=== PATIENT | male | born 1980 | race Caucasian/White ===

== ENCOUNTER 2021-09-17 20:01 | Inpatient (IN) | payer MEDICAID, SELFPAY ==
[2021-09-17 20:02] VITALS: BP 149/72; PULSE 97; RESP 16; TEMP 37.9; O2SAT 95; BMI 40.4
[2021-09-17 20:12] VITALS: BP 149/72; PULSE 97; RESP 16; TEMP 37.9; O2SAT 96
--- NOTE | 2021-09-17 20:18 | CT_ITS ---
We are attempting to reach an attending provider to discuss findings. An addendum with communication details will be sent when the communication is complete. STUDY: CT Abdomen And Pelvis W/O Contrast Injection 09/17/2021 8:50 PM REASON FOR EXAM: Male, 40 years old. ABDOMINAL PAIN abdominal pain TECHNIQUE: Transaxial images were obtained without oral contrast, and without intravenous contrast. Individualized dose optimization techniques were used for this CT. COMPARISON: 12.30.12. FINDINGS: The visualized lung bases are unremarkable. The visualized portions of the heart are within normal limits. There is decreased attenuation of the liver consistent with steatosis. Unremarkable gallbladder and extrahepatic biliary system. Unremarkable spleen. Unremarkable pancreas. Unremarkable bilateral adrenal glands. No acute findings of the right kidney. No acute findings of the left kidney. Unremarkable visualized stomach. Unremarkable small intestine. There is diverticulosis, with thickening of the colon wall, and pericolonic inflammation changes consistent with acute diverticulitis. Regional focal perforation with extraluminal air. There is non-visualization of the appendix. There are no acute findings of the abdominal aorta. Unremarkable inferior vena cava. Subcentimeter mesenteric lymph nodes. Unremarkable urinary bladder. There is bilateral neural foraminal stenosis at L4-5 and L5-S1. Unremarkable abdominal wall. There are diffuse degenerative changes of the visualized lumbar spine. CT/Abdomen/Pelvis without Cont IMPRESSION: (NOT LISTED IN ORDER OF SIGNIFICANCE) Fatty liver. Sigmoid acute diverticulitis. Regional focal perforation with extraluminal air Other findings as above. CF called and case discussed. Electronically Signed: Ed Schmid MD at 21:00 EDT ,
--- NOTE | 2021-09-17 20:19 | EX.ED.DYSGE1 ---
HPI History of Present Illness Chief Complaint: Abd Pain Narrative Narrative: Patient presents with left lower quadrant abdominal pain for the past 3 days. He has noticed low-grade fever at home of 100. No urinary symptoms. No flank pain. No diarrhea. He does have a history of diverticulitis. Pain is described as crampy and constant but it does wax and wane. PFSH PFSH Home Medications cyclobenzaprine 10 mg PO TID PRN #20 tablet 02/06/17 [Rx Last Taken Unknown] naproxen 500 mg PO BID PRN #20 tab 02/06/17 [Rx Last Taken Unknown] oxycodone-acetaminophen 1 - 2 tab PO Q4H PRN PRN #20 tab 02/06/17 [Rx Last Taken Unknown] Allergy/AdvReac Type Severity Reaction Status Date / Time No Known Allergies Allergy Verified 09/17/21 20:02 Social History Smoking Status: Former smoker ROS ROS ED ROS Narrative Past medical history: Reviewed Medications: Reviewed Social history: Noncontributory Review of systems: All systems negative except as indicated General: No fever Eyes: No visual changes ENT: No upper airway congestion, normal voice Neck: No neck pain Cardiovascular: No chest pain Respiratory: No shortness of breath or cough Gastrointestinal: As in HPI Genitourinary: No dysuria Musculoskeletal: Denies myalgias no difficulty with ambulation Skin: No rash Neurological: No memory loss, confusion or any focal weakness Psych: No recent behavioral changes Hematologic: No easy bleeding or easy bruising EXAM Physical Exam Narrative Exam Narrative: Physical exam General: Well nourished, Well developed, No Acute Distress Head: Normocephalic, Atraumatic Eyes: Conjunctiva not pale ENT: Moist mucous membranes Neck: Supple, Nontender, No lymphadenopathy Cardiovascular: Regular rate, Regular rhythm Respiratory: No distress, CTA bilaterally Abdomen: Soft, left lower quadrant abdominal pain without any guarding or rebound. No right-sided abdominal pain. No pain at McBurney's no epigastric pain. No right upper quadrant pain. Negative Francis's. Back: Nontender, Normal Inspection. Negative for: CVA tenderness Extremities: Nontender, No edema Skin: Normal color, No rash Neurological: Alert, Normal Strength, Normal Sensation Psychological: Normal affect Const Vital Signs: 09/17/21 20:02 09/17/21 20:12 Temperature 100.3 F H 100.3 F H Temperature Source Oral Oral Pulse Rate 97 97 Respiratory Rate 16 16 Blood Pressure 149/72 H 149/72 H Blood Pressure Mean 97 97 Pulse Ox 95 96 Oxygen Delivery Method Room Air Room Air MDM MDM MDM Narrative Medical decision making narrative: Patient is found to have diverticulitis with microperforation. Patient appears well but does have leukocytosis Zosyn was given. Analgesia will be provided as needed. I talked to surgery who will admit. Lab Data Labs: Laboratory Results - last 24 hr 09/17/21 09/17/21 20:15 20:15 WBC 22.0 H RBC 5.40 Hgb 16.7 H Hct 48.0 MCV 88.9 MCH 30.9 MCHC 34.8 RDW Std Deviation 41.6 RDW Coeff of Tu 12.8 Plt Count 256 MPV 10.8 Immature Gran % (Auto) 0.500 Neut % (Auto) 80.6 H Lymph % (Auto) 11.0 L [place] % (Auto) 7.5 Eos % (Auto) 0.1 Baso % (Auto) 0.3 Absolute Neuts (auto) 17.7 H Absolute Lymphs (auto) 2.41 Nucleated RBC % 0 Diff Path Review May foll Anisocytosis 1+ Ovalocytes 1+ Sodium 137 Potassium 3.5 Chloride 104 Carbon Dioxide 26.0 Anion Gap 7 BUN 9 Creatinine 0.78 Estim Creat Clear Calc 125.89 Est GFR (MDRD) Af Amer 141 Est GFR (MDRD) Non-Af 116 BUN/Creatinine Ratio 11.5 Glucose 164 H Calcium 9.4 Total Bilirubin 1.00 AST 19 ALT 46 Alkaline Phosphatase 59 Total Protein 7.9 Albumin 4.0 Globulin 3.9 Albumin/Globulin Ratio 1.0 Lipase 41 L Radiography Diagnostic Testing: Clinical Impression(s) from Imaging Studies Abdomen/Pelvis CT 09/17/21 20:18 IMPRESSION: (NOT LISTED IN ORDER OF SIGNIFICANCE) Fatty liver. Sigmoid acute diverticulitis. Regional focal perforation with extraluminal air Other findings as above. CF called and case discussed. Electronically Signed: Ed Schmid MD at 21:00 EDT , ADDENDUM: 09/17/212125 IMPRESSION: (NOT LISTED IN ORDER OF SIGNIFICANCE) Fatty liver. Sigmoid acute diverticulitis. Regional focal perforation with extraluminal air Other findings as above. CF called and case discussed. N.B. : The above Results were Read Back by Ed Schmid MD to MD nicolasa, and understanding confirmed on 09/17/2021 21:19:56 (ET). Electronically Signed: Ed Schmid MD at 21:00 EDT Reading Location ID and State: [facility] / [place] , Service support , Discharge Plan Triage Chief Complaint: Abd Pain ED Provider: Trino Fisher Dx/Rx/DC Orders Clinical Impression: Diverticulitis, Diverticular disease of intestine with perforation and abscess Prescriptions: No Action cyclobenzaprine 10 MG tablet 10 mg PO TID PRN (Reason: Muscle Spasm) Qty: 20 RF: 0 oxycodone-acetaminophen 1 TABLET tablet 1 - 2 tab PO Q4H PRN PRN (Reason: Pain) Qty: 20 RF: 0 naproxen 500 MG tablet 500 mg PO BID PRN Qty: 20 RF: 0 Primary Care Provider: Nik Metcalf Referrals: Nik Metcalf MD [Primary Care Provider] - Disposition Disposition: Acute Care [facility]
[2021-09-17 20:27] LABS: Absolute Lymphocyte Count 2.41 X10^3/uL (0.83-4.51); Absolute Neutrophil Count 17.7 X10^3/uL (2.0-7.7); Basophil# 0.06 X10^3/uL; Basophil% 0.3 % (0-1); Eosinophil# 0.02 X10^3/uL; Eosinophils% 0.1 % (0-5); Hemoglobin 16.7 g/dL (13.0-16.5); Lymphocyte # 2.41 X10^3/ul (0.83-4.51); Mean Corp Hgb Conc 34.8 g/dL (32-36); Mean Corpuscular Hgb 30.9 pg (27.0-32.0); Mean Corpuscular Volume 88.9 fL (80-94); Mean Platelet Vol. 10.8 fl (6.2-12.0); Monocyte# 1.64 X10^3/uL; Monocyte% 7.5 % (0-10); NRBC Flagged by Analyzer 0 % (0-5); Neutrophil # 17.71 X10^3/uL (2.7-7.7); Neutrophil % 80.6 % (47-70); POSITIVE DIFFERENTIAL YES; Platelet Count 256 K/mm3 (150-450); RBC Distribution Width CV 12.8 % (11.6-14.6); RBC Distribution Width SD 41.6 fl (35.1-43.9)
[2021-09-17 20:49] LABS: AST(SGOT) 19 U/L (15-37); Alanine Aminotransfer ALT/SGPT 46 U/L (16-61); Alkaline Phosphatase 59 U/L (45-117); Anion Gap 7 (5-15); BUN 9 mg/dL (7-18); BUN/Creat Ratio 11.5 RATIO (10-20); Calcium,Total 9.4 mg/dL (8.5-10.1); Chloride 104 mmol/L (98-107); Creatinine, Serum 0.78 mg/dL (0.70-1.30); EST Glomerular Filtration Rate 116 mL/min (>60); Est Glom Filt Rate - Afr Amer 141 mL/min (>60); Estimated Creatinine Clearance 125.89 ml/min; Globulin 3.9 g/dL (2.2-4.2); Glucose 164 mg/dL (74-106); Lipase 41 U/L (73-393); Potassium 3.5 mmol/L (3.5-5.1); Protein, Total 7.9 g/dL (6.4-8.2); Sodium Level 137 mmol/L (136-145)
[2021-09-17 20:56] LABS: Differential Indicated SCAN CRITERIA MET
[2021-09-17 21:04] VITALS: BP 176/77; PULSE 73; RESP 16; TEMP 37.2; O2SAT 96
[2021-09-17 21:16] LABS: Anisocytosis 1+; Ovalocyte 1+
[2021-09-17 21:29] LABS: Bacteria 0 SEEN /hpf (None Seen); Mucous, Urine 0 SEEN /hpf (<or=2+); Red Blood Cells-Urine 0 SEEN /hpf (0-5); Squamous Epithelial Cells - UA 0 SEEN /hpf (0-5); White Blood Cells 0 SEEN /hpf (0-5)
[2021-09-17 21:44] LABS: Color, Urine Yellow (Yellow); Glucose, Dipstick Normal (Normal); Ketone-Dipstick 5 mg/dl (Negative); Leukocyte Esterase-Dipstick Negative /ul (Negative); Nitrite-Dipstick Negative (Negative); Occult Blood-Urine Negative /ul (Negative); Protein-Dipstick Negative (Negative); Urine Bilirubin Dipstick Negative (Negative); Urine Clarity Clear (Clear); Urine Urobilinogen Normal (Normal)
[2021-09-17 21:50] VITALS: BP 176/77; PULSE 73; RESP 16; TEMP 37.2; O2SAT 96
[2021-09-17 23:03] VITALS: BMI 40.3
[2021-09-17 23:17] VITALS: BP 164/80; PULSE 78; RESP 18; TEMP 37.1; O2SAT 95
[2021-09-17] MEDS: 0.9% Normal Saline 1,000 ML 125 ML IV (23:18)
[2021-09-17] MEDS: Morphine 2 MG/ML Syringe IV (23:26)
[2021-09-18 00:55] VITALS: BP 148/75
[2021-09-18 02:29] VITALS: BP 141/87; PULSE 78; RESP 18; TEMP 36.8; O2SAT 96
[2021-09-18 05:39] LABS: Absolute Lymphocyte Count 2.77 X10^3/uL (0.83-4.51); Absolute Neutrophil Count 12.2 X10^3/uL (2.0-7.7); Basophil# 0.06 X10^3/uL; Basophil% 0.4 % (0-1); Eosinophil# 0.08 X10^3/uL; Eosinophils% 0.5 % (0-5); Hematocrit 44.6 % (40-54); Hemoglobin 15.4 g/dL (13.0-16.5); Lymphocyte # 2.77 X10^3/ul (0.83-4.51); Lymphocyte % 16.7 % (19-41); Mean Corp Hgb Conc 34.5 g/dL (32-36); Mean Corpuscular Hgb 31.1 pg (27.0-32.0); Mean Corpuscular Volume 90.1 fL (80-94); Mean Platelet Vol. 10.9 fl (6.2-12.0); Monocyte# 1.43 X10^3/uL; Monocyte% 8.6 % (0-10); NRBC Flagged by Analyzer 0 % (0-5); Neutrophil # 12.22 X10^3/uL (2.7-7.7); Neutrophil % 73.4 % (47-70); Platelet Count 217 K/mm3 (150-450); RBC Distribution Width SD 42.7 fl (35.1-43.9); Red Blood Count 4.95 M/mm3 (4.6-6.2); White Blood Count 16.6 K/mm3 (4.4-11.0)
[2021-09-18 05:59] LABS: Anion Gap 6 (5-15); BUN 9 mg/dL (7-18); BUN/Creat Ratio 13.6 RATIO (10-20); Calcium,Total 8.9 mg/dL (8.5-10.1); Chloride 106 mmol/L (98-107); Creatinine, Serum 0.66 mg/dL (0.70-1.30); EST Glomerular Filtration Rate 141 mL/min (>60); Est Glom Filt Rate - Afr Amer 170 mL/min (>60); Estimated Creatinine Clearance 148.78 ml/min; Glucose 156 mg/dL (74-106); Magnesium 1.7 mg/dL (1.6-2.6); Phosphorus 2.2 mg/dL (2.5-4.9); Potassium 3.6 mmol/L (3.5-5.1); Sodium Level 137 mmol/L (136-145)
[2021-09-18] MEDS: 0.9% Normal Saline 1,000 ML 125 ML IV ×3 (06:28→22:41)
[2021-09-18] MEDS: Morphine 2 MG/ML Syringe IV ×5 (06:28→20:30)
--- NOTE | 2021-09-18 07:23 | PCM.HP.STD ---
HPI - General General Date of Admission: 09/17/21 HPI Narrative KAYLEE OCHOA, is a 40 M who presents with abdominal pain. Patient reports the pain started yesterday. He says that the pain is in his left lower quadrant. He also reports nausea and vomiting. He did have a low-grade fever in the emergency room. He has had 1 bout of diverticulitis about 7 or 8 years ago. He has never had a colonoscopy. PFSH Medical History Former smoker Home Medications naproxen 500 mg PO BID PRN PRN 09/17/21 [History Last Taken 09/15/21] Allergy/AdvReac Type Severity Reaction Status Date / Time No Known Allergies Allergy Verified 09/17/21 20:02 Social History Smoking Status: Former smoker ROS Constitutional Constitutional: Reports anorexia and fever(s); Denies fatigue Eyes Eyes: Denies blurry vision ENT HEENT: Denies abnormal hearing Cardiovascular Cardiovascular: Denies chest pain Respiratory/Chest Respiratory/Chest: Denies cough or dyspnea Gastrointestinal Gastrointestinal: Reports abdominal pain, nausea and vomiting; Denies diarrhea or dysphagia Genitourinary Genitourinary: Denies change in urinary stream Musculoskeletal Musculoskeletal: Denies abnormal gait Integumentary Integumentary: Denies jaundice Neurologic Neurologic: Denies abnormal gait Psychiatric Psychiatric: Denies depression Endocrine Endocrinology: Denies flushing Hematologic/Lymphatic Hematologic/Lymphatic: Denies easy bleeding Vital Signs Vital Signs Vital Signs: 09/17/21 20:02 09/17/21 20:12 09/17/21 21:04 Temperature 100.3 F H 100.3 F H 99 F Temperature Source Oral Oral Oral Pulse Rate 97 97 73 Respiratory Rate 16 16 16 Blood Pressure 149/72 H 149/72 H 176/77 H Blood Pressure [BP] Blood Pressure Mean 97 97 110 Blood Pressure Mean [BP] Blood Pressure Source Blood Pressure Source [BP] Blood Pressure Position Blood Pressure Position [BP] Blood Pressure Location Blood Pressure Location [BP] Pulse Ox 95 96 96 Oxygen Delivery Method Room Air Room Air Room Air 09/17/21 21:50 09/17/21 23:17 09/18/21 00:55 Temperature 99 F 98.7 F Temperature Source Oral Oral Pulse Rate 73 78 Respiratory Rate 16 18 Blood Pressure 176/77 H 164/80 H Blood Pressure [BP] 148/75 H Blood Pressure Mean 110 108 Blood Pressure Mean [BP] 99 Blood Pressure Source Monitor Blood Pressure Source [BP] Monitor Blood Pressure Position Semi-Fowlers Blood Pressure Position [BP] Supine Blood Pressure Location Right Arm Blood Pressure Location [BP] Right Arm Pulse Ox 96 95 Oxygen Delivery Method Room Air Room Air 09/18/21 02:29 Temperature 98.3 F Temperature Source Oral Pulse Rate 78 Respiratory Rate 18 Blood Pressure 141/87 H Blood Pressure [BP] Blood Pressure Mean 105 Blood Pressure Mean [BP] Blood Pressure Source Monitor Blood Pressure Source [BP] Blood Pressure Position Semi-Fowlers Blood Pressure Position [BP] Blood Pressure Location Left Arm Blood Pressure Location [BP] Pulse Ox 96 Oxygen Delivery Method Room Air Weight Weight: 272 lb 14.916 oz Body Mass Index (BMI) 40.3 Physical Exam Const oriented x3 and no apparent distress Resp normal respiratory effort Cardio regular rate and regular rhythm GI soft to palpation Inspection: Negative for abdominal distention Palpation: tender LLQ Extremity normal to inspection Results Lab / Micro Data Result Diagrams: 09/18/21 05:15 09/18/21 05:15 Labs: Laboratory Results - last 24 hr 09/17/21 20:15: WBC 22.0 H, RBC 5.40, Hgb 16.7 H, Hct 48.0, MCV 88.9, MCH 30.9, MCHC 34.8, RDW Std Deviation 41.6, RDW Coeff of Tu 12.8, Plt Count 256, MPV 10.8, Immature Gran % (Auto) 0.500, Neut % (Auto) 80.6 H, Lymph % (Auto) 11.0 L, [place] % (Auto) 7.5, Eos % (Auto) 0.1, Baso % (Auto) 0.3, Absolute Neuts (auto) 17.7 H, Absolute Lymphs (auto) 2.41, Nucleated RBC % 0, Diff Path Review May foll, Anisocytosis 1+, Ovalocytes 1+ 09/17/21 20:15: Sodium 137, Potassium 3.5, Chloride 104, Carbon Dioxide 26.0, Anion Gap 7, BUN 9, Creatinine 0.78, Estim Creat Clear Calc 125.89, Est GFR (MDRD) Af Amer 141, Est GFR (MDRD) Non-Af 116, BUN/Creatinine Ratio 11.5, Glucose 164 H, Calcium 9.4, Total Bilirubin 1.00, AST 19, ALT 46, Alkaline Phosphatase 59, Total Protein 7.9, Albumin 4.0, Globulin 3.9, Albumin/Globulin Ratio 1.0, Lipase 41 L 09/17/21 21:25: Urine Color Yellow, Urine Clarity Clear, Urine pH 8.0, Ur Specific [place] 1.010, Urine Protein Negative, Urine Glucose (UA) Normal, Urine Ketones 5 H, Urine Occult Blood Negative, Urine Nitrite Negative, Urine Bilirubin Negative, Urine Urobilinogen Normal, Ur Leukocyte Esterase Negative, Urine RBC 0 SEEN, Urine WBC 0 SEEN, Ur Squamous Epith Cells 0 SEEN, Urine Bacteria 0 SEEN, Urine Mucus 0 SEEN 09/18/21 05:15: WBC 16.6 H, RBC 4.95, Hgb 15.4, Hct 44.6, MCV 90.1, MCH 31.1, MCHC 34.5, RDW Std Deviation 42.7, RDW Coeff of Tu 13.0, Plt Count 217, MPV 10.9, Immature Gran % (Auto) 0.400, Neut % (Auto) 73.4 H, Lymph % (Auto) 16.7 L, [place] % (Auto) 8.6, Eos % (Auto) 0.5, Baso % (Auto) 0.4, Absolute Neuts (auto) 12.2 H, Absolute Lymphs (auto) 2.77, Nucleated RBC % 0 09/18/21 05:15: Sodium 137, Potassium 3.6, Chloride 106, Carbon Dioxide 25.0, Anion Gap 6, BUN 9, Creatinine 0.66 L, Estim Creat Clear Calc 148.78, Est GFR (MDRD) Af Amer 170, Est GFR (MDRD) Non-Af 141, BUN/Creatinine Ratio 13.6, Glucose 156 H, Calcium 8.9, Phosphorus 2.2 L, Magnesium 1.7 Radiology Impression Abdomen/Pelvis CT 09/17/21 20:18 IMPRESSION: (NOT LISTED IN ORDER OF SIGNIFICANCE) Fatty liver. Sigmoid acute diverticulitis. Regional focal perforation with extraluminal air Other findings as above. CF called and case discussed. Electronically Signed: Ed Schmid MD at 21:00 EDT , ADDENDUM: 09/17/212125 IMPRESSION: (NOT LISTED IN ORDER OF SIGNIFICANCE) Fatty liver. Sigmoid acute diverticulitis. Regional focal perforation with extraluminal air Other findings as above. CF called and case discussed. N.B. : The above Results were Read Back by Ed Schmid MD to MD nicolasa, and understanding confirmed on 09/17/2021 21:19:56 (ET). Electronically Signed: Ed Schmid MD at 21:00 EDT , Assessment & Plan Assessment/Plan (1) Diverticulitis: PLAN: Patient presented with abdominal pain and increased white count. The patient has CT scan that showed diverticulitis of the sigmoid colon with microperforation. I have admitted him and started him on IV antibiotics and his white count is coming down he was afebrile for the rest of the night. He is still having tenderness but it is improved. Continue IV antibiotics and n.p.o. with sips and chips for at least another 24 hours. I did advise colonoscopy after this resolves. Edmund Gill MD Pager: [facility] [address] [place] [address], [address] [place] [address] Office:
[2021-09-18 08:55] VITALS: BP 164/79; PULSE 71; RESP 18; TEMP 36.6; O2SAT 95
[2021-09-18] MEDS: Enoxaparin 40 MG/0.4 ML Syringe SC (09:51)
--- NOTE | 2021-09-18 10:35 | CASEMGMT ---
RN CM Face to Face with patient for initial transition planning/care coordination assessment. RN CM introduced self and role at [facility]. Patient lying in bed, alert and oriented. Patient willing to participate in assessment and is able to answer all questions appropriately. Care providers, pharmacy, and demographics verified. Patient wishes to discharge home, denies need for home health at this time. Patient states he has no further needs or concerns at this time. CM to follow for discharge planning needs that may arise. PCP: [facility] Specialists: cheyanne Krishna; Paul Romo specialjay [facility] Preferred Pharmacy: [facility] Insurance: [employer] Prescription Benefit: yes Living Will/HPOA: none LNOK: [email or web address] Living Arrangements: Patient is currently staying with mother in a first floor apartment with ramp to enter. Patient states he is independent at home. Transportation: self, mother DME/HHC: Patient states he has access to cane, walker, and grab bars at home. No previous HHC or SNF. Disposition Plan: Patient to discharge home with family support and follow-up plans in place. Lolita MIRANDA, RN, CM
[2021-09-18 11:52] LABS: Pathologist Review Reviewed
[2021-09-18] MEDS: 0.9% Saline Lock 10 ML Syringe IV ×2 (14:47→20:29)
[2021-09-18 14:54] VITALS: BP 141/77; PULSE 69; RESP 18; TEMP 37.2; O2SAT 94
[2021-09-18 20:54] VITALS: BP 145/80; PULSE 71; RESP 16; TEMP 37; O2SAT 98
[2021-09-19 03:25] VITALS: BP 138/97; PULSE 81; RESP 16; TEMP 36.9; O2SAT 97
[2021-09-19 05:49] LABS: Absolute Lymphocyte Count 2.66 X10^3/uL (0.83-4.51); Absolute Neutrophil Count 9.3 X10^3/uL (2.0-7.7); Basophil# 0.06 X10^3/uL; Basophil% 0.4 % (0-1); Eosinophil# 0.17 X10^3/uL; Eosinophils% 1.3 % (0-5); Hematocrit 42.2 % (40-54); Hemoglobin 14.8 g/dL (13.0-16.5); Lymphocyte # 2.66 X10^3/ul (0.83-4.51); Lymphocyte % 19.8 % (19-41); Mean Corp Hgb Conc 35.1 g/dL (32-36); Mean Corpuscular Hgb 31.3 pg (27.0-32.0); Mean Corpuscular Volume 89.2 fL (80-94); Mean Platelet Vol. 10.7 fl (6.2-12.0); Monocyte# 1.16 X10^3/uL; Monocyte% 8.6 % (0-10); NRBC Flagged by Analyzer 0 % (0-5); Neutrophil # 9.34 X10^3/uL (2.7-7.7); Neutrophil % 69.4 % (47-70); Platelet Count 197 K/mm3 (150-450); RBC Distribution Width CV 12.7 % (11.6-14.6); RBC Distribution Width SD 41.6 fl (35.1-43.9); Red Blood Count 4.73 M/mm3 (4.6-6.2); White Blood Count 13.5 K/mm3 (4.4-11.0)
[2021-09-19 06:08] LABS: Anion Gap 7 (5-15); BUN 9 mg/dL (7-18); BUN/Creat Ratio 13.5 RATIO (10-20); Calcium,Total 8.7 mg/dL (8.5-10.1); Chloride 106 mmol/L (98-107); Creatinine, Serum 0.67 mg/dL (0.70-1.30); EST Glomerular Filtration Rate 140 mL/min (>60); Est Glom Filt Rate - Afr Amer 169 mL/min (>60); Estimated Creatinine Clearance 146.56 ml/min; Glucose 140 mg/dL (74-106); Potassium 3.7 mmol/L (3.5-5.1); Sodium Level 138 mmol/L (136-145)
[2021-09-19] MEDS: 0.9% Normal Saline 1,000 ML 125 ML IV (06:15)
--- NOTE | 2021-09-19 07:22 | PN.SURG_ITS ---
Subjective Subjective Patient reports that he is feeling well. He has been passing flatus. His abdominal pain is greatly improved and only present on deep palpation. No nausea or vomiting. Objective Data Objective Data Vital Signs: Vital Signs Temp Pulse Resp BP Pulse Ox 98.4 F 81 16 138/97 H 97 09/19/21 03:25 09/19/21 03:25 09/19/21 03:25 09/19/21 03:25 09/19/21 03:25 Oxygen Delivery Method Room Air Weight: 272 lb 14.916 oz Body Mass Index (BMI) 40.3 Intake & Output: Intake and Output for Last 24 Hours 09/17/21 09/18/21 09/19/21 23:59 23:59 23:59 Intake Total 600 / 600 3365.83 / 3365.83 995.83 / 995.83 Balance 600 / 600 3365.83 / 3365.83 995.83 / 995.83 Lab / Micro Data Result Diagrams: 09/19/21 05:25 09/19/21 05:25 Labs: Laboratory Results - last 24 hr 09/17/21 20:15: Diff Path Review Reviewed 09/19/21 05:25: WBC 13.5 H, RBC 4.73, Hgb 14.8, Hct 42.2, MCV 89.2, MCH 31.3, MCHC 35.1, RDW Std Deviation 41.6, RDW Coeff of Tu 12.7, Plt Count 197, MPV 10.7, Immature Gran % (Auto) 0.500, Neut % (Auto) 69.4, Lymph % (Auto) 19.8, [place] % (Auto) 8.6, Eos % (Auto) 1.3, Baso % (Auto) 0.4, Absolute Neuts (auto) 9.3 H, Absolute Lymphs (auto) 2.66, Nucleated RBC % 0 09/19/21 05:25: Sodium 138, Potassium 3.7, Chloride 106, Carbon Dioxide 25.0, Anion Gap 7, BUN 9, Creatinine 0.67 L, Estim Creat Clear Calc 146.56, Est GFR (MDRD) Af Amer 169, Est GFR (MDRD) Non-Af 140, BUN/Creatinine Ratio 13.5, Glucose 140 H, Calcium 8.7 Physical Exam Const oriented x3 and no apparent distress Resp normal respiratory effort GI soft to palpation Inspection: Negative for abdominal distention Palpation: tender LLQ Assessment & Plan Assessment/Plan (1) Diverticular disease of intestine with perforation and abscess: PLAN: The patient is improving and his white count is coming down. He has no abdominal pain unless deep palpation is applied. He is passing flatus. I will start him on a clear liquid diet and continue antibiotics. Edmund Gill MD Pager: [facility] [address] [place] [address], [address] [place] [address] Office:
[2021-09-19 09:25] VITALS: BP 167/84; PULSE 72; RESP 18; TEMP 37.1; O2SAT 96
[2021-09-19] MEDS: Enoxaparin 40 MG/0.4 ML Syringe SC (10:16)
[2021-09-19] MEDS: 0.9% Saline Lock 10 ML Syringe IV ×4 (11:33→22:08)
[2021-09-19 14:40] VITALS: BP 150/88; PULSE 67; RESP 18; TEMP 37.3; O2SAT 96
[2021-09-19 20:40] VITALS: BP 147/71; PULSE 65; RESP 16; TEMP 37.1; O2SAT 97
[2021-09-20 03:00] VITALS: BP 147/79; PULSE 56; RESP 16; TEMP 36.8; O2SAT 96
--- NOTE | 2021-09-20 06:42 | PN.SURG_ITS ---
Subjective Subjective Patient is doing well. Patient tolerated clear liquids with no nausea or vomiting. No increased abdominal pain. Patient reports positive flatus with no pain. Patient's abdominal pain is minimal if any. Objective Data Objective Data Vital Signs: Vital Signs Temp Pulse Resp BP Pulse Ox 98.2 F 56 L 16 147/79 H 96 09/20/21 03:00 09/20/21 03:00 09/20/21 03:00 09/20/21 03:00 09/20/21 03:00 Oxygen Delivery Method Room Air Weight: 272 lb 14.916 oz Body Mass Index (BMI) 40.3 Intake & Output: Intake and Output for Last 24 Hours 09/18/21 09/19/21 09/20/21 23:59 23:59 23:59 Intake Total 3365.83 / 3365.83 2324.58 / 3124.58 850 / 850 Balance 3365.83 / 3365.83 2324.58 / 3124.58 850 / 850 Lab / Micro Data Result Diagrams: 09/19/21 05:25 09/19/21 05:25 Physical Exam Const oriented x3 and no apparent distress Resp normal respiratory effort Cardio regular rate and regular rhythm GI soft to palpation and non-tender Inspection: Negative for abdominal distention Assessment & Plan Assessment/Plan (1) Diverticulitis: PLAN: Patient is doing well. His abdominal pain is resolved and he tolerated clears yesterday. I will advance him to a transitional diet and if he tolerates this I will discharge him home on oral antibiotics for 2 weeks. Patient will follow-up with me for colonoscopy. Edmund Gill MD Pager: [facility] [address] [place] [address], [address] [place] [address] Office:
[2021-09-20 09:00] VITALS: BP 157/66; PULSE 68; RESP 18; TEMP 36.6; O2SAT 98
[2021-09-20] MEDS: Enoxaparin 40 MG/0.4 ML Syringe SC (09:58)
[2021-09-20] MEDS: 0.9% Saline Lock 10 ML Syringe IV ×2 (10:07→10:49)
--- NOTE | 2021-09-20 12:28 | PCM.DC ---
Discharge Instructions Diet Discharge Diet: - (Low residue; low fiber diet) Activity Discharge Activity: Return to Normal Activity Follow Up Care Please Follow Up With: Edmund Gill MD When: 2 weeks. Please call [phone] to schedule appointment Test Results: Test results from this visit will be discussed in further detail at your follow-up appointment, if applicable. Discharge Plan Admission Admit Date/Time: 09/17/21 21:29 Primary Reason for Your Visit: Acute diverticulitis with hperforation Attending Provider: Edmund Gill Primary Care Provider: Nik Metcalf Instructions Patient Instructions: Low-Fiber Diet Additional Instructions / Restrictions: Recommend low residue/low fiber diet Discharge Orders/Prescriptions Prescriptions: New ciprofloxacin HCl [Cipro] 500 mg tablet 500 mg PO BID 11 Days Qty: 22 RF: 0 metronidazole 500 mg tablet 500 mg PO TID 11 Days Qty: 33 RF: 0 Continued naproxen 500 MG tablet 500 mg PO BID PRN PRN (Reason: Pain) RF: 0 Referrals / Follow Up: Nik Metcalf MD [Primary Care Provider] - Edmund Gill MD [STAFF PHYSICIAN] - (Please call our office for a 2 week follow-up appointment) Disposition Disposition (needs filled in before D/C Order can be placed): Home, Self Care
--- NOTE | 2021-09-20 12:33 | DS.PCM_ITS ---
Providers Date of Admission: 09/17/21 Primary Care Physician: Dr. Nik Metcalf MD Reason For Visit: perforated diverticulitis Diagnosis Discharge Diagnosis (1) Diverticulitis: Status: Acute Code(s): K57.92 - Diverticulitis of intestine, part unspecified, without perforation or abscess without bleeding Medications at Discharge Home Medications naproxen 500 mg PO BID PRN PRN 09/17/21 ciprofloxacin HCl [Cipro] 500 mg PO BID 11 Days #22 tab 09/20/21 metronidazole 500 mg PO TID 11 Days #33 tab 09/20/21 Hospital Course Operations None Procedures None Summary of Care Provided Minutes Spent on Discharge: 25 Hospital Course: Patient is a 40 y/o M who presented to the ED with left lower quadrant pain for 3 days prior to presentation. CT scan of the abdomen/pelvis demonstrated acute sigmoid diverticulitis with focal perforation. Patient's symp toms were managed with conservative measures i.e. IV antibiotics, IV fluids and bowel rest. Patient's symptoms resolved on hospital stay day #2. He was advanced to clear liquids which he tolerated. Upon discharge, patient tolerated a transitional diet. He has been passing flatus and had a bowel movement. He denies any abdominal pain. He denies fever, chills. He will be discharged to home on 11 more days of oral antibiotics. He will follow-up with Dr. Gill in 2 weeks for re-evaluation and potentially schedule a colonoscopy. Weight / BMI Weight Weight: 272 lb 14.916 oz Body Mass Index (BMI) 40.3 ABG / Lab / Microbiology Data Result Diagrams: 09/19/21 05:25 09/19/21 05:25 D/C Instructions Discharge Diet: - (Low residue; low fiber diet) Please Follow Up With: Edmund Gill MD When: 2 weeks. Please call [phone] to schedule appointment Meaningful Use Info Meaningful Use Diagnoses (Choose all that apply): None applicable Discharge Plan Admission Admit Date/Time: 09/17/21 21:29 Primary Reason for Your Visit: Acute diverticulitis with hperforation Attending Provider: Edmund Gill Primary Care Provider: Nik Metcalf Instructions Patient Instructions: Low-Fiber Diet Additional Instructions / Restrictions: Recommend low residue/low fiber diet Discharge Orders/Prescriptions Prescriptions: New ciprofloxacin HCl [Cipro] 500 mg tablet 500 mg PO BID 11 Days Qty: 22 RF: 0 metronidazole 500 mg tablet 500 mg PO TID 11 Days Qty: 33 RF: 0 Continued naproxen 500 MG tablet 500 mg PO BID PRN PRN (Reason: Pain) RF: 0 Referrals / Follow Up: Edmund Gill MD [STAFF PHYSICIAN] - (Please call our office for a 2 week follow-up appointment) Nik Metcalf MD [Primary Care Provider] - Disposition Disposition (needs filled in before D/C Order can be placed): Home, Self Care Charges/Coding Visit Charges Inpatient E&M: 79136 Disch Hosp
[2021-09-20 13:55] VITALS: BP 157/80; PULSE 64; RESP 18; TEMP 36.6; O2SAT 98
--- NOTE | 2021-09-20 14:00 | CASEMGMT ---
RN CM in to pt room, pt nurse dc'ing IV. Pt denies any homegoing needs.
== END 2021-09-20 14:38 | disposition home or self-care (01) | DRG 244 ==
LOC: ED 21:41 → MS3 22:00
PROVIDERS: Admitting Provider Surgery; Emergency Provider Emergency Medicine; PCP Family Medicine; Visit Provider Surgery
DX: K57.20 Diverticulitis of large intestine with perforation and abscess without bleeding (principal); Z87.891 Personal history of nicotine dependence
CPT/HCPCS: 36415; 74176; 80048; 80053; 81001; 83690; 83735; 84100; 85025; 99251; 99284; 99406; J7030; J7040; J7050; A4216; G0463

== ENCOUNTER 2021-11-06 06:50 | Day surgery (SDC) | payer MEDICAID, SELFPAY ==
[2021-11-06] MEDS: Lactated Ringers 1,000 ML 15 ML IV (07:00)
[2021-11-06 07:17] VITALS: BP 148/98; PULSE 61; RESP 17; TEMP 36.3; O2SAT 99; BMI 40.4
--- NOTE | 2021-11-06 07:50 | HP.PCM_ITS ---
History and Physical Date of Admission: 11/06/21 Intake Vital Signs ? 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 Smoking Status:? Former smoker HPI HPI HPI: KAYLEE OCHOA, is a 40 M who presents to the office today for follow-up after being admitted for diverticulitis with microperforation.? Patient reports he is doing well with no abdominal pain.? He is tolerating a diet with normal bowel movements. ROS General General: No weight change, appetite, fatigue, colon cancer, breast cancer or weakness HEENT HEENT: No difficulty swallowing, eye injury, eye surgery, swollen glands or hoarseness Endo Endocrine: No thyroid disease, diabetes mellitus, thyroid cancer, Hair loss, heat intolerance or cold intolerance Skin Skin: No rash or changing moles Breast Breast: No left breast lump, right breast lump, nipple discharge, breast pain, abnormal mammogram, abnormal US or breast enlargement Musc Musculoskeletal: Yes back problems and arthritis; No rheumatoid arthritis, gout or joint pain Cardio Cardiovascular: No murmur, pacemaker, heart disease, atrial fibrillation, high blood pressure, heart attack, heart stent, palpitations, shortness of breat with exertion or chest pain Psych Psychiatric: No depression, anxiety or hearing voices Resp Respiratory: No shortness of breath, No sleep apnea, No cough, No COPD, No asthma, No emphysema and No wheezing Gastro Gastrointestinal: No abdominal pain, No nausea or vomiting, No diarrhea, No constipation, No blood in stool, No acid reflux, No hemorrhoids, No ulcers, No gallbladder problem and No black,tarry stools Sagar Hematologic: No blood thinners, No blood disorders, No bleeding, No anemia and No blood clots Neuro Neurologic: No system reviewed and no additional complaints, except as documented, No as per HPI, No abnormal gait, No abnormal hearing, No abnormal movements, No abnormal speech, No behavioral changes, No burning sensations, No confusion, No convulsions, No disequilibrium, No dizziness, No localized weakness, No frequent falls, No headache(s), No lack of coordination, No loss of vision, No memory loss, No numbness, No other visual disturbances, No radicular pain, No restless legs, No sensory deficit, No syncope, No tingling, No tremor(s), No weakness and No other Exam Const General: cooperative Orientation: alert and oriented x3 HENMT Head: normal to inspection Neck Neck: normal visual inspection and full ROM Chest Chest palpation & inspection: normal inspection of the chest Resp Effort & Inspection: normal respiratory effort Auscultation: clear to auscultation bilaterally Cardio Rate: regular rate Rhythm: regular rhythm GI Inspection: non-distended Palpation: soft and nontender Skin General: no rashes or lesions noted Neuro General: patient alert and patient oriented x3 Extrem General: full ROM Psych Appearance: grossly normal Mental Status: mental status grossly normal Assessment and Plan Assessment and Plan (1) Diverticular disease of intestine with perforation and abscess: ?Status:?Inactive ?Plan - Dr. Edmund Gill MD: Patient is doing well after being discharged on antibiotics.? The patient should have colonoscopy for evaluation of the sigmoid colon. I explained endoscopy in detail to the patient.? I explained the risks including but not limited to stroke or heart attack with anesthesia, perforation of the GI tract, bleeding, infection.? I explained that any of these could necessitate further emergency surgery.? The patient understands and all questions were answered sufficiently.? The patient wishes to proceed with procedure. Edmund Gill MD Pager: [facility] [address] [place] [address], [address] [place] [address] Office: I have re-examined the patient. There are no clinical changes since date of exam.
--- NOTE | 2021-11-06 08:14 | OP.COLON_ITS ---
Patient Name: Constantino Mitchell Procedure Date: 11/06/2021 7:55 AM Date of : 1980 Age: 41 Procedure: Colonoscopy Indications: Follow-up of diverticulitis Providers: Edmund Gill MD Referring MD: Nik Metcalf Medicines: Monitored Anesthesia Care Patient Profile: This is a 41 year old male. Refer to note in patient chart for documentation of history and physical. Last Colonoscopy: none. The patient's first colonoscopy is today. Complications: No immediate complications. Procedure: Pre-Anesthesia Assessment: - Prior to the procedure, a History and Physical was performed, and patient medications and allergies were reviewed. The patient's tolerance of previous anesthesia was also reviewed. The risks and benefits of the procedure and the sedation options and risks were discussed with the patient. All questions were answered, and informed consent was obtained. Prior Anticoagulants: The patient has taken no previous anticoagulant or antiplatelet agents. After reviewing the risks and benefits, the patient was deemed in satisfactory condition to undergo the procedure. After I obtained informed consent, the scope was passed under direct vision. Throughout the procedure, the patient's blood pressure, pulse, and oxygen saturations were monitored continuously. The pediatric colonoscope was introduced through the anus and advanced to the cecum, identified by appendiceal orifice and ileocecal valve. The colonoscopy was performed without difficulty. The patient tolerated the procedure well. The quality of the bowel preparation was good. Scope In: 8:02:59 AM Scope Withdrawal Time 0 hours 5 minutes 17 seconds Scope Out: 8:11:58 AM Total Procedure Duration Time 0 hours 8 minutes 59 seconds Findings: The entire examined colon appeared normal on direct and retroflexion views. A few small-mouthed diverticula were found in the sigmoid colon. Impression: - The entire examined colon is normal on direct and retroflexion views. - No specimens collected. Recommendation: - Discharge patient to home. - Resume previous diet. - Continue present medications. - Await pathology results. - Repeat colonoscopy in 10 years for screening purposes. Procedure Code(s): --- Professional --- 41445, Colonoscopy, flexible; diagnostic, including collection of specimen(s) by brushing or washing, when performed (separate procedure) Diagnosis Code(s): --- Professional --- K57.32, Diverticulitis of large intestine without perforation or abscess without bleeding CPT copyright 2017 [employer]. All rights reserved. The codes documented in this report are preliminary and upon outpatient coder review may be revised to meet current compliance requirements. Edmund Gill MD 11/06/2021 8:14:11 AM This report has been signed electronically. Number of Addenda: 0 Note Initiated On: 11/06/2021 7:55 AM
[2021-11-06 08:15] VITALS: BP 107/54; BP 148/98; PULSE 61; RESP 16; TEMP 36.4; O2SAT 94
--- NOTE | 2021-11-06 08:15 | OP.CCLET_ITS ---
11/06/2021 Nik Metcalf [address] [place] [address] Re : Colonoscopy procedure for Constantino Mitchell Dear Dr. Metcalf This procedure was performed on Saturday, November 06, 2021. My impressions and recommendations are as follows: Impressions : - The entire examined colon is normal on direct and retroflexion views. - No specimens collected. Recommendations : - Discharge patient to home. - Resume previous diet. - Continue present medications. - Await pathology results. - Repeat colonoscopy in 10 years for screening purposes. My findings are described in the full procedure note, which is enclosed. If I can be of further assistance, please feel free to contact me at Doctor phone number(s): , Work: . Sincerely, Edmund Gill MD 11/06/2021 8:14:11 AM This report has been signed electronically.
[2021-11-06 08:20] VITALS: BP 112/65; BP 148/98; PULSE 62; RESP 16; O2SAT 97
[2021-11-06 08:25] VITALS: BP 118/73; BP 148/98; PULSE 52; RESP 16; O2SAT 97
[2021-11-06 08:30] VITALS: BP 116/79; BP 148/98; PULSE 54; RESP 16; TEMP 36.1; O2SAT 99
[2021-11-06 08:45] VITALS: BP 148/98
== END 2021-11-06 08:50 | disposition home or self-care (01) ==
LOC: EN 06:50 → AC 06:51
PROVIDERS: PCP Family Medicine; Referring Provider Family Medicine; Visit Provider Surgery
PROC: 0DJD8ZZ Inspection of Lower Intestinal Tract, Via Natural or Artificial Opening Endoscopic (ICD-10-PCS; CPT 45378; principal; 2021-11-06 07:55)
DX: K57.32 Diverticulitis of large intestine without perforation or abscess without bleeding (principal); M19.90 Unspecified osteoarthritis, unspecified site; F12.90 Cannabis use, unspecified, uncomplicated; Z87.891 Personal history of nicotine dependence
CPT/HCPCS: 45378; J7120; J2405

== ENCOUNTER 2021-12-31 16:55 | Emergency (ER) | payer MEDICAID, SELFPAY ==
[2021-12-31 16:56] VITALS: BP 132/73; PULSE 69; RESP 15; TEMP 36.9; O2SAT 97; BMI 39.6
[2021-12-31] MEDS: Amox/Clavulanate 875 MG Tablet PO (18:27)
[2021-12-31] MEDS: oxyCODONE 5 MG Tablet PO (18:27)
--- NOTE | 2021-12-31 23:18 | EDS_ITS ---
HPI History of Present Illness Chief Complaint: Dental Narrative Narrative: Patient presenting with right-sided facial swelling. He has had this for couple of days. He has had 3 doses of penicillin VK. He states he tried to make an appointment with his dentist although he was unable to get in today. Patient states that the pain seems to emanate from my right upper canine. Patient has been using ice which does help with the swelling. Denies any systemic signs or symptoms. He states that anti-inflammatories are not helping him with the pain. No difficulty swallowing or breathing. [facility] Medical History Anxiety Arthritis Back pain Blackout Depression Dietary restriction Diverticular disease of intestine with perforation and abscess Former smoker History of pain when walking Loss of hearing Marijuana use PTSD (post-traumatic stress disorder) Wears glasses Home Medications naproxen 500 mg tablet 500 mg PO BID PRN PRN Pain 09/17/21 [History Last Taken 09/15/21] multivitamin-ferrous fumarate-folic acid 18 mg-400 mcg tablet (Centrum Complete) 1 tab PO DAILY 11/02/21 [History Last Taken Unknown] amoxicillin 875 mg-potassium clavulanate 125 mg tablet 1 tab PO BID #20 tabs 12/31/21 [Rx Last Taken Unknown] metformin 500 mg tablet,extended release 24 hr 1 mg PO DAILY 12/31/21 [History Last Taken Unknown] oxycodone-acetaminophen 5 mg-325 mg tablet (Percocet) 1 tab PO Q6H PRN pain 3 days #12 tabs 12/31/21 [Rx Last Taken Unknown] penicillin V potassium 500 mg tablet 500 mg PO 4X/DAY 12/31/21 [History Last Taken Unknown] Allergy/AdvReac Type Severity Reaction Status Date / Time No Known Allergies Allergy Verified 11/02/21 10:41 Surgical History History of tonsillectomy and adenoidectomy Hx of arthroscopic knee surgery Social History Smoking Status: Former smoker ROS ROS ED Constitutional Constitutional ED: Denies chills or fever(s) Eyes Eyes: Denies change in vision ENT ENT ED: Reports other Details: Dental pain ; Denies rhinorrhea or sore throat Cardiovascular Cardiovascular: Denies chest pain or palpitations Respiratory/Chest Respiratory/Chest: Denies cough or dyspnea Gastrointestinal Gastrointestinal: Denies abdominal pain or constipation Musculoskeletal Musculoskeletal: Denies arthralgias or back pain Integumentary Denies rash Neurologic Neurologic: Denies headache(s) Psychiatric Psychiatric: Denies anxiety or depression Endocrine Endocrinology: Denies cold intolerance or heat intolerance EXAM Physical Exam Const Vital Signs: 12/31/21 16:56 Temperature 98.4 F Temperature Source Temporal Pulse Rate 69 Respiratory Rate 15 Blood Pressure 132/73 H Blood Pressure Mean 92 Pulse Ox 97 Oxygen Delivery Method Room Air Positive well nourished General Appearance ED: NAD HEENT Reports TM's clear HEENT Narrative: Percussion tenderness of tooth #4. No obvious gingival lesions. Tongue is not swollen. No sublingual edema. Mild right cheek swelling. Tympanic Membrane ED: Yes TM's clear Mouth ED: Yes oral and palatal mucosa abnormal Mouth: oral and palatal mucosa abnormal Neck no lymphadenopathy Cardio regular rate and regular rhythm Extremity normal to inspection Neuro oriented x3 and CN's II-XII intact bilaterally Sensorium / Orientation: alert Psych mental status grossly normal Skin no rashes or lesions noted and no wounds MDM MDM MDM Narrative Medical decision making narrative: Patient with dental pain and right facial swelling. He has been on penicillin VK but states is not helping. He also states that he needs something more for pain. Patient switched to Augmentin. He is given oxycodone for pain. He is counseled to follow-up with his dental professional. Return precautions were discussed. Impression: 1. Dental abscess 2. Facial swelling Lab Data Attestation: I reviewed the patient's lab results. Discharge Plan Triage Chief Complaint: Dental ED Provider: Emil Velazco Dx/Rx/DC Orders Instructions: ED Dental Abscess Facial Cellulitis Prescriptions: New amoxicillin-pot clavulanate 875-125 mg tablet 1 tab PO BID Qty: 20 0RF oxycodone-acetaminophen [Percocet] 5-325 mg tablet 1 tab PO Q6H PRN (Reason: pain) 3 Days Qty: 12 0RF No Action naproxen 500 MG tablet 500 mg PO BID PRN PRN (Reason: Pain) Centrum Complete 18-400 mg-mcg Tablet 1 tab PO DAILY penicillin V potassium 500 mg tablet 500 mg PO 4X/DAY Label Comments: TAKE 1 TABLET BY MOUTH FOUR TIMES DAILY FOR 5 DAYS metformin 500 mg tablet extended release 24 hr 1 mg PO DAILY Label Comments: Take 1 tablet by mouth daily with breakfast. Primary Care Provider: Nik Metcalf Referrals: Nik Metcalf MD [Primary Care Provider] - Disposition Disposition: Home, Self Care Discharge Date/Time: 12/31/21 18:43
== END 2021-12-31 18:43 | disposition home or self-care (01) ==
PROVIDERS: Emergency Provider Student in an Organized Health Care Education/Training Program; PCP Family Medicine; Visit Provider Student in an Organized Health Care Education/Training Program
DX: K04.7 Periapical abscess without sinus (principal); R22.0 Localized swelling, mass and lump, head; Z87.891 Personal history of nicotine dependence; Z79.84 Long term (current) use of oral hypoglycemic drugs
CPT/HCPCS: 99283

== ENCOUNTER 2022-06-12 10:18 | Outpatient (RCR) | payer MEDICAID, SELFPAY ==
--- NOTE | 2022-06-12 11:20 | HP.PTEVAL ---
Patient's Visit Information KAYLEE OCHOA is a 41 year old M referred to Physical Therapy by BUNNY Pichardo with a diagnosis of CHRONIC MIDLINE LOW BACK PAIN WITH SCIATICA. Date of Evaluation: 06/12/22 Physical Therapist: Que Trivedi, PT, Cert MDT, OCS - Visit Plan Frequency: 2x /Week Duration: 4 Weeks Plan: PT INTERVTIONS AQUATIC THERAPY DLS ,POSTURAL EX'S ,LE FLEXABLITY AND STRENGTHENING - Subjective This 41 y/o male presents to physical therapy with back pain. Patient pain located lumbar symmetrical. Patient has h/o lumbar pain with fracture 2017 injury developed weakness and nerve damage. Patient seen DR recommended Aquatic therapy. Patient seen [facility] and [facility] then had 2nd opinion in [facility] both agree surgery may pain worse. Patient also wants to learn ex's for weight management and knee pain left from injury thus had arthroscopic surgery . MEDS : flexural ,naproxyn . Aggravating factors lifting bending ,sitting ,standing walking. Also right knee pain interferes with these activities. Alleviating factors rest and and medication. Coughing/sneezing + . C/O left leg paresthesia. Patient pain affects sleeping . Bowel/bladder -. Patient has prior diagnostics in past MRI and x-ray-.Patient has left foot drop left. Patient condition affects QOL and disability. - Objective POSTURE: WFL. NEURO: c/o paresthesia/tingling left leg ,reflexes L3-4,L4-5 ,L5-S1 1/3. SYMTRIES: align. PALPTION: tender paraspinals. FLEXABLITY: hamstrings min tight ,piriformis min tight. MMT: quads/hams 4/5 ,hip flexion 4-5 ,ankle 5/5. LUMBAR ROM flexion mod loss ,min loss extension , side glides WL - Special Tests L/S Slump test left side: Negative L/S Slump test right side: Negative L/S Left Straight Leg Raise: Negative L/S Right Straight Leg Raise: Negative Lumbar Standing: Flexion - Mechanical Response: No effect Lumbar Standing: Flexion - Symptoms During Testing: Increases Lumbar Standing: Flexion - Symptoms After Testing: Worse Lumbar Standing: Extension - Mechanical Response: No effect Lumbar Standing: Extension - Symptoms During Testing: Increases Lumbar Standing: Extension - Symptoms After Testing: Worse Lumbar Standing: Right Side Glides - Mechanical Response: No effect Lumbar Standing: Right Side [place] - Symptoms During Testing: No effect Lumbar Standing: Right Side [place] - Symptoms After Testing: No effect Lumbar Standing: Left Side [place] - Mechanical Response: No effect Lumbar Standing: Left Side [place] - Symptoms During Testing: No effect Lumbar Standing: Left Side [place] - Symptoms After Testing: No effect - Balance/Special Test Scores Oswestry Low Back Score: 22 - Goals Goal 1:: Patient to be I with Aquatic therapy program Goal Time Frame: 4-6 Weeks Goal 2:: Patient improve posture/body mechanics for ADLS Goal Time Frame: 4-6 Weeks Goal 3:: Patient to demonstrate 40% improvement with decrease pain and improved functionb Goal Time Frame: 4-6 Weeks Goal 4:: Patient improve lumbar ROM for function of recovery to tie shoes Goal Time Frame: 4-6 Weeks Goal 5:: Patient to improve back oswestry score by 5 points to improve QOL Goal Time Frame: 4-6 Weeks - Rehabilitation Potential Physical Therapy Diagnosis: This patient has lumbar pain with radicular symptoms with pain worse with positioning and motion testing with weakness thus benefit from skilled PT Rehabilitation Potential: Good - Anticipated Interventions Patient/Client Instruction: Educate patient on: Condition, Plan of Care For the Purpose of:: To decrease pain, To increase ROM, To improve muscle performance and motor function, To improve ability to perform ADL's, To increase tolerance to activity/condition/position, To improve ability of physical actions for home/community/work/leisure, To improve health of tissue, To decrease soft tissue restriction, To increase flexibility/ROM, To prevent re-injury Therapeutic Exercise to Include: Strength training, Body mechanics, Postural training, Flexibilty training, In an aquatic setting, Dynamic Lumbar Stabilization For the Purpose of:: To decrease pain, To increase ROM, To improve muscle performance and motor function, To improve ability to perform ADL's, To increase tolerance to activity/condition/position, To improve ability of physical actions for home/community/work/leisure, To improve health of tissue, To decrease soft tissue restriction, To increase flexibility/ROM, To prevent re-injury Thank you for the opportunity to evaluate your patient. For Medicare and Medicare HMO plans, please review the plan of care and approve it. It will need to be FAXED BACK to us at [phone] for Medicare purposes. For Medicare only, by signing this I certify the plan of care. Please let me know if there are questions or concerns regarding this plan of care. Physician Signature: Date:
--- NOTE | 2022-11-17 17:30 | HP.PT.NRP ---
Patient Information Patient Information: KAYLEE OCHOA was seen in my office for initial evaluation on 06/12/22. The following Plan of Care was established for this patient: POC Established Initial Frequency: 2x /Week Initial Duration: 4 Weeks Anticipated Interventions Patient/Client Instruction: Educate patient on: Condition and Plan of Care For the Purpose of:: To decrease pain, To increase ROM, To improve muscle performance and motor function, To improve ability to perform ADL's, To increase tolerance to activity/condition/position, To improve ability of physical actions for home/community/work/leisure, To improve health of tissue, To decrease soft tissue restriction, To increase flexibility/ROM and To prevent re-injury Therapeutic Exercise to Include: Strength training, Body mechanics, Postural training, Flexibilty training, In an aquatic setting and Dynamic Lumbar Stabilization For the Purpose of:: To decrease pain, To increase ROM, To improve muscle performance and motor function, To improve ability to perform ADL's, To increase tolerance to activity/condition/position, To improve ability of physical actions for home/community/work/leisure, To improve health of tissue, To decrease soft tissue restriction, To increase flexibility/ROM and To prevent re-injury Last Seen Last Seen: This patient was last seen in our office . Pertinent comments regarding their Physical therapy will appear below: Patient was seen for PT for intial evaluation thus d/c At this point I will be discontinuing this patient from physical therapy. I would be happy to see this patient again in the future if found appropriate by the physician. Thank you! Que Trivedi, PT, Cert MDT, OCS Balance/Gait/Functional tests Balance/Special Test Scores Oswestry Low Back Score: 22
== END 2022-06-12 19:00 | disposition home or self-care (01) ==
LOC: PT 10:18
PROVIDERS: PCP Family Medicine; Referring Provider Nurse Practitioner Family; Visit Provider Nurse Practitioner Family
DX: M54.50 Low back pain, unspecified (principal); G89.29 Other chronic pain
CPT/HCPCS: 97162

== ENCOUNTER 2023-09-18 17:42 | Emergency (ER) | payer MEDICARE, MEDICAID, SELFPAY ==
[2023-09-18 17:44] VITALS: BP 146/89; PULSE 81; RESP 16; TEMP 36.7; O2SAT 95; BMI 41.6
[2023-09-18 17:46] VITALS: BP 146/80; PULSE 80; RESP 16; TEMP 36.7; O2SAT 95
--- NOTE | 2023-09-18 18:03 | CT_ITS ---
EXAM: CT ABDOMEN AND PELVIS WITH INTRAVENOUS CONTRAST CLINICAL INDICATION: LLQ pain, H/O diverticulitis -- IV PO Contrast TECHNIQUE: Helically acquired images were obtained of the abdomen and pelvis with intravenous contrast. This CT exam was performed using one or more of the following dose reduction techniques: automated exposure control, adjustment of the mA and/or kV according to patient size, and/or use of iterative reconstruction technique. CONTRAST: Oral and amp; IV Gastrografin and amp; 100mL Isovue-300 COMPARISON: CT abdomen and pelvis without contrast earlier on the same date. FINDINGS: LOWER THORAX: No significant abnormality. Lung bases are clear. No cardiomegaly. No significant pericardial effusion. ABDOMEN: LIVER: Low-attenuation within the liver without focal hepatic abnormality likely secondary to fatty infiltration. GALLBLADDER AND BILE DUCTS: No significant abnormality. No calcified gallstones. No gallbladder distention or wall edema. No intra- or extrahepatic biliary ductal dilation. PANCREAS: No significant abnormality. No focal cystic or solid mass. SPLEEN: No significant abnormality. Normal size without focal cystic or solid mass. ADRENALS: No significant abnormality. No nodules. KIDNEYS AND URETERS: No significant abnormality. Normal renal size and position. No hydronephrosis. STOMACH AND BOWEL: There is acute diverticulitis of the sigmoid colon with slight increased degree of pericolonic inflammation compared to the prior examination. Punctate foci of air adjacent to the colon appear to be contained within multiple diverticula in this location. No definitive evidence of microperforation although this cannot be entirely excluded such as that suspected as seen on sagittal series image 106. The oral contrast administered extends to the area of bowel wall thickening associated with the inflammatory process. No stomach or bowel distention. PELVIS: APPENDIX: A normal appendix is identified in the right lower quadrant. BLADDER: No significant abnormality. REPRODUCTIVE: Normal as visualized. No mass. ABDOMEN and PELVIS: INTRAPERITONEAL SPACE: Foci of air adjacent to the sigmoid colon are likely contained within diverticula. No definite free air is identified and no evidence of free fluid. BONES/JOINTS: Degenerative changes in the spine. No suspicious lytic or blastic abnormality. SOFT TISSUES: No significant abnormality. No discrete abdominal or pelvic wall hernia. VASCULATURE: No significant abnormality. Abdominal aorta is non-dilated. LYMPH NODES: No significant abnormality. No enlarged lymph nodes. CT/Abdomen/Pelvis WITH Contrast IMPRESSION: 1. There is acute diverticulitis of the sigmoid colon with slight increased degree of pericolonic inflammation compared to the prior examination. Punctate foci of air adjacent to the colon appear to be contained within multiple diverticula in this location. No definitive evidence of microperforation although this cannot be entirely excluded (such as that suspected as seen on sagittal series image 106). 2. Likely fatty liver. Electronically Signed: Hossein Schrader DO at 20:16 EDT ,
--- NOTE | 2023-09-18 18:03 | EX.ED.DYSGE1 ---
HPI History of Present Illness Chief Complaint: Abd Pain Informant: patient Narrative Narrative: Patient presents with mild left lower quadrant abdominal pain for the past couple of days. He has a history of diverticulitis and required hospitalization in the past. He went to present early with this illness in case he does have diverticulitis again. He states he has had some chills today but has been checking his temperature. His Tmax has been 99.1. No pain with bowel movement and no blood in his stool. PFSH PFSH Medical History Loss of hearing Wears glasses PTSD (post-traumatic stress disorder) Depression Anxiety Marijuana use Arthritis Back pain Blackout Dietary restriction History of pain when walking Former smoker Diverticular disease of intestine with perforation and abscess Home Medications ?Medication ?Instructions ?Recorded ?Last Taken ?Type multivitamin-ferrous 1 tab PO DAILY 11/02/21 Unknown History fumarate-folic acid 18 mg-400 mcg tablet (Centrum Complete) metformin 500 mg tablet,extended 1 mg PO DAILY 12/31/21 Unknown History release 24 hr ciprofloxacin HCl 500 mg tablet 500 mg PO BID #20 tabs 09/18/23 Unknown Rx (Cipro) metronidazole 500 mg tablet 500 mg PO Q8H #30 tabs 09/18/23 Unknown Rx Allergy/AdvReac Type Severity Reaction Status Date / Time No Known Allergies Allergy Verified 09/18/23 17:46 Surgical History Hx of arthroscopic knee surgery History of tonsillectomy and adenoidectomy Social History household members: family housing: house Smoking Status: Former smoker ROS ROS ED Constitutional Constitutional ED: Reports chills; Denies fever(s) Eyes Eyes: Denies discharge from eye(s) ENT ENT ED: Denies discharge from eye(s), rhinorrhea or sore throat Cardiovascular Cardiovascular: Denies chest pain Respiratory/Chest Respiratory/Chest: Denies cough or dyspnea Gastrointestinal Gastrointestinal: Reports abdominal pain; Denies diarrhea, nausea or vomiting Genitourinary Genitourinary ED: Denies dysuria Musculoskeletal Musculoskeletal: Denies back pain or extremity pain Integumentary Denies Abrasions or rash Neurologic Neurologic: Denies headache(s) or weakness Allergic/Immunologic Allergic/Immunologic ED: Denies lip swelling or urticaria EXAM Physical Exam Const Vital Signs: 09/18/23 17:44 09/18/23 17:46 09/18/23 19:43 Temperature 98.1 F 98.1 F 98.3 F Temperature Source Temporal Temporal Oral Pulse Rate 81 80 88 Respiratory Rate 16 16 16 Blood Pressure 146/89 H 146/80 H 152/88 H Blood Pressure Mean 108 102 109 Pulse Ox 95 95 98 Oxygen Delivery Method Room Air Room Air Room Air 09/18/23 20:58 Temperature 98.4 F Temperature Source Oral Pulse Rate 86 Respiratory Rate 16 Blood Pressure Blood Pressure Mean Pulse Ox 98 Oxygen Delivery Method Room Air Positive well nourished and well developed General Appearance ED: well developed HEENT Reports moist mucous membranes Eyes EOMs intact bilaterally Chest Wall inspection of chest normal and palpation of chest normal Resp normal respiratory effort and clear to auscultation bilaterally Cardio regular rate and regular rhythm GI GI Narrative: Abdomen soft with mild tenderness in the left lower quadrant. No guarding or rebound. No palpable masses. Hypoactive but present bowel sounds are noted. Extremity normal to inspection Neuro oriented x3 and no sensory deficits noted Motor Exam: strength 5/5 throughout Psych mental status grossly normal Skin no rashes or lesions noted MDM MDM MDM Narrative Medical decision making narrative: IV line established. Patient given IV fluids. Labwork obtained to evaluate for leukocytosis, anemia, and electrolyte derangement. CT scan of the abdomen pelvis will be obtained to evaluate for potential diverticulitis. History & Record Review Discussion w/independent historian: Patient Additional record(s) reviewed:: Prior inpatient record, Prior ED visit and Prior labs Lab Data Attestation: I reviewed the patient's lab results. Labs: Laboratory Results - last 24 hr 09/18/23 18:14 WBC 17.5 H RBC 5.24 Hgb 16.0 Hct 46.2 MCV 88.2 MCH 30.5 MCHC 34.6 RDW Std Deviation 42.0 RDW Coeff of Tu 12.9 Plt Count 208 MPV 10.5 Immature Gran % (Auto) 0.300 Neut % (Auto) 71.1 H Lymph % (Auto) 18.1 L [place] % (Auto) 7.6 Eos % (Auto) 2.5 Baso % (Auto) 0.4 Absolute Neuts (auto) 12.4 H Absolute Lymphs (auto) 3.17 Nucleated RBC % 0 Sodium 137 Potassium 3.6 Chloride 107 Carbon Dioxide 26.0 Anion Gap 4 L BUN 11 Creatinine 0.75 Estim Creat Clear Calc 169.84 Est GFR (MDRD) Af Amer 146 Est GFR (MDRD) Non-Af 121 BUN/Creatinine Ratio 14.6 Glucose 139 H Calcium 9.2 Radiography Diagnostic Testing: Clinical Impression(s) from Imaging Studies Abdomen/Pelvis CT 09/18/23 18:03 IMPRESSION: 1. There is acute diverticulitis of the sigmoid colon with slight increased degree of pericolonic inflammation compared to the prior examination. Punctate foci of air adjacent to the colon appear to be contained within multiple diverticula in this location. No definitive evidence of microperforation although this cannot be entirely excluded (such as that suspected as seen on sagittal series image 106). 2. Likely fatty liver. Electronically Signed: Hossein Schrader, at 20:16 EDT , Treatment and Re-Evaluation :: White count is elevated at 17.5 with 71% neutrophils. Hemoglobin 16. Chemistry studies unremarkable. CT scan with p.o. and IV contrast reveals acute diverticulitis of the sigmoid colon with slight increased degree of pericolonic inflammation compared to the prior exam. Punctate foci of air adjacent to the colon appeared to be contained within multiple diverticula. No definite evidence of microperforation although cannot be entirely excluded. I spoke Dr. Gill who has seen the patient previously. He reviewed the images. He does agree that the air does seem to be contained within the diverticula. Patient would like to go home and states he is only having minimal pain at this time. We discussed the importance of a minimal clear liquid diet until he is pain-free. Dr. Gill will see him in the office next week. If he has worsening symptoms in any way he is to return to the emergency room. He voices understanding and agreement. He will be given a dose of Cipro and Flagyl here and prescription will be sent to the pharmacy for him. Discharge Plan Triage Chief Complaint: Abd Pain ED Provider: Ashley Corbett Dx/Rx/DC Orders Clinical Impression: Diverticulitis Instructions: ED Diverticulitis Prescriptions: New ciprofloxacin HCl [Cipro] 500 mg tablet 500 mg PO BID Qty: 20 0RF metronidazole 500 mg tablet 500 mg PO Q8H Qty: 30 0RF No Action Centrum Complete 18-400 mg-mcg Tablet 1 tab PO DAILY metformin 500 mg tablet extended release 24 hr 1 mg PO DAILY Patient Comments: Take 1 tablet by mouth daily with breakfast. Primary Care Provider: Nik Metcalf Referrals: Edmund Gill MD [Med Staff - Active Staff] - 5-7 Days Nik Metcalf MD [Primary Care Provider] - Activity Restrictions/Additional Instructions: As discussed, please be sure you are following a minimal clear liquid diet. You to follow this clear diet until your pain is resolved. Print Language: Ukrainian Disposition Disposition: Home, Self Care
[2023-09-18] MEDS: 0.9% Normal Saline (1000mL) 1,000 ML 150 ML IV (18:12)
[2023-09-18 18:18] LABS: Absolute Lymphocyte Count 3.17 X10^3/uL (0.83-4.51); Absolute Neutrophil Count 12.4 X10^3/uL (2.0-7.7); Basophil# 0.07 X10^3/uL; Basophil% 0.4 % (0-1); Eosinophil# 0.43 X10^3/uL; Eosinophils% 2.5 % (0-5); Hematocrit 46.2 % (40-54); Lymphocyte # 3.17 X10^3/ul (0.83-4.51); Lymphocyte % 18.1 % (19-41); Mean Corp Hgb Conc 34.6 g/dL (32-36); Mean Corpuscular Hgb 30.5 pg (27.0-32.0); Mean Corpuscular Volume 88.2 fL (80-94); Mean Platelet Vol. 10.5 fl (6.2-12.0); Monocyte# 1.32 X10^3/uL; Monocyte% 7.6 % (0-10); NRBC Flagged by Analyzer 0 % (0-5); Neutrophil # 12.43 X10^3/uL (2.7-7.7); Neutrophil % 71.1 % (47-70); Platelet Count 208 K/mm3 (150-450); RBC Distribution Width CV 12.9 % (11.6-14.6); Red Blood Count 5.24 M/mm3 (4.6-6.2); White Blood Count 17.5 K/mm3 (4.4-11.0)
[2023-09-18 18:32] LABS: Anion Gap 4 (5-15); BUN 11 mg/dL (7-18); BUN/Creat Ratio 14.6 RATIO (10-20); Calcium,Total 9.2 mg/dL (8.5-10.1); Chloride 107 mmol/L (98-107); Creatinine, Serum 0.75 mg/dL (0.70-1.30); EST Glomerular Filtration Rate 121 mL/min (>60); Est Glom Filt Rate - Afr Amer 146 mL/min (>60); Estimated Creatinine Clearance 169.84 ml/min; Glucose 139 mg/dL (74-106); Potassium 3.6 mmol/L (3.5-5.1); Sodium Level 137 mmol/L (136-145)
[2023-09-18 19:43] VITALS: BP 152/88; PULSE 88; RESP 16; TEMP 36.8; O2SAT 98
[2023-09-18 20:58] VITALS: PULSE 86; RESP 16; TEMP 36.9; O2SAT 98
[2023-09-18] MEDS: Ciprofloxacin 500 MG Tablet PO (21:26)
[2023-09-18] MEDS: metroNIDAZOLE 500 MG Tablet PO (21:26)
[2023-09-18 21:29] VITALS: BP 130/65; PULSE 86; RESP 16; TEMP 36.9; O2SAT 99
== END 2023-09-18 21:30 | disposition home or self-care (01) ==
PROVIDERS: Emergency Provider Emergency Medicine; PCP Family Medicine; Visit Provider Emergency Medicine
DX: K57.30 Diverticulosis of large intestine without perforation or abscess without bleeding (principal); Z79.84 Long term (current) use of oral hypoglycemic drugs; Z87.891 Personal history of nicotine dependence
CPT/HCPCS: 74177; 80048; 85025; 96360; 96361; 99284; J7030; Q9967

== ENCOUNTER 2023-09-27 05:05 | Inpatient (IN) | payer MEDICARE, MEDICAID, SELFPAY ==
[2023-09-27] VITALS (8 sets, daily range): BP systolic 129–157; BP diastolic 65–90; PULSE 61–82; RESP 16–18; TEMP 36.4–37.2; O2SAT 94–100; BMI 39.5; BMI 40.1
--- NOTE | 2023-09-27 05:21 | CT_ITS ---
EXAM: CT ABDOMEN AND PELVIS WITH INTRAVENOUS CONTRAST CLINICAL INDICATION: None provided. TECHNIQUE: Helically acquired images were obtained of the abdomen and pelvis with intravenous contrast. This CT exam was performed using one or more of the following dose reduction techniques: automated exposure control, adjustment of the mA and/or kV according to patient size, and/or use of iterative reconstruction technique. CONTRAST: IV 100mL Isovue-370 RADIATION DOSE: CTDIvol = 17.05 mGy, DLP = 1268.58 mGy-cm COMPARISON: September 18, 2023 showing acute diverticulitis FINDINGS: LOWER THORAX: Unremarkable. Lung bases are clear. No cardiomegaly. No significant pericardial effusion. ABDOMEN: LIVER: Right liver lobe is 20.4 cm in length. Mild low-attenuation fatty-appearing liver. GALLBLADDER AND BILE DUCTS: Unremarkable. No calcified gallstones. No gallbladder distention or wall edema. No intra- or extrahepatic biliary ductal dilation. PANCREAS: Unremarkable. No focal cystic or solid mass. SPLEEN: Spleen 13.7 cm craniocaudal. ADRENALS: Unremarkable. No nodules. KIDNEYS AND URETERS: Unremarkable. Normal renal size and position. No hydronephrosis. STOMACH AND BOWEL: History: diverticulitis. There is mildly increased soft tissue stranding around the proximal sigmoid and better seen pockets of subtle low-attenuation the anterior sigmoid wall. No discrete drainable abscess at this time. Moderate fluid and gas in the proximal half of the colon. Mildly prominent mid abdominal small bowel content. No stomach or bowel distention. PELVIS: APPENDIX: No evidence of acute appendicitis. BLADDER: Unremarkable. REPRODUCTIVE: Unremarkable as visualized. No mass. ABDOMEN and PELVIS: INTRAPERITONEAL SPACE: New slight fluid in the pelvis. Trace fluid in the right lower quadrant. No free intraperitoneal air. BONES/JOINTS: Marked disc space narrowing and vacuum disc at L4-5 L5-S1. No suspicious lytic or blastic abnormality. SOFT TISSUES: Unremarkable. No discrete abdominal or pelvic wall hernia. VASCULATURE: Unremarkable. Abdominal aorta is non-dilated. LYMPH NODES: Multiple mildly prominent retroperitoneal lymph nodes around the aorta and IVC at the level of the kidneys. Possibly reactive. CT/Abdomen/Pelvis W IV Cont ONLY IMPRESSION: 1. Mild increased pericolonic inflammation involving proximal sigmoid consistent with worsening diverticulitis. No discrete drainable abscess or free intraperitoneal air. Trace 2. Intrapelvic right lower quadrant fluid. Electronically Signed: Pati Jackson MD at 7:17 EDT ,
[2023-09-27] MEDS: Morphine 4 MG/ML Syringe IV ×3 (05:41→22:05)
[2023-09-27] MEDS: 0.9% Normal Saline (1000mL) 1,000 ML 999 ML IV (05:41)
[2023-09-27] MEDS: Ondansetron 4 MG/2 ML Vial IV (05:41)
--- NOTE | 2023-09-27 06:02 | EDS_ITS ---
HPI HPI - GI History of Present Illness Chief Complaint: Abd Pain Informant: patient Narrative Narrative: 42-year-old male presenting to the emergency room with persistent left lower abdominal pain. Patient states that he was seen 17 September the emergency department here at [facility]. He had a CT scan that showed diverticulitis. He has seen Dr. Gill in the past for colonoscopy. Case was discussed with surgery at that time. He was discharged home on Cipro and Flagyl. He felt that on Friday going into Friday he was getting better but his pain returned on Friday more severe and is steadily worsened. He denies any current fevers. He notes 2 days left of his antibiotics and figured he should be getting better but he was not so he returned to the emergency room today. He states he has been trying to keep his diet mostly with water and applesauce. He states he is not have any problems with bowel movements or urination. [facility] Medical History Loss of hearing Wears glasses PTSD (post-traumatic stress disorder) Depression Anxiety Marijuana use Arthritis Back pain Blackout Dietary restriction History of pain when walking Former smoker Diverticular disease of intestine with perforation and abscess Home Medications ?Medication ?Instructions ?Recorded ?Last Taken ?Type multivitamin-ferrous 1 tab PO DAILY 11/02/21 Unknown History fumarate-folic acid 18 mg-400 mcg tablet (Centrum Complete) metformin 500 mg tablet,extended 1 mg PO DAILY 12/31/21 Unknown History release 24 hr ciprofloxacin HCl 500 mg tablet 500 mg PO BID #20 tabs 09/18/23 Unknown Rx (Cipro) metronidazole 500 mg tablet 500 mg PO Q8H #30 tabs 09/18/23 Unknown Rx naproxen 500 mg tablet 500 mg PO BID PRN PRN pain 09/27/23 Unknown History Allergy/AdvReac Type Severity Reaction Status Date / Time No Known Allergies Allergy Verified 09/27/23 05:06 Surgical History Hx of arthroscopic knee surgery History of tonsillectomy and adenoidectomy Social History household members: family housing: house Smoking Status: Former smoker ROS ROS ED Constitutional Constitutional ED: Denies chills, fever(s) or weight loss Eyes Eyes: Denies change in vision or diplopia ENT ENT ED: Denies ear pain, rhinorrhea or sore throat Cardiovascular Cardiovascular: Denies chest pain, orthopnea, palpitations or racing heartbeat Respiratory/Chest Respiratory/Chest: Denies cough, dyspnea or orthopnea Gastrointestinal Gastrointestinal: Reports abdominal pain; Denies constipation, diarrhea, nausea or vomiting Genitourinary Genitourinary ED: Denies dysuria, hematuria or urinary frequency Musculoskeletal Musculoskeletal: Denies arthralgias, back pain or myalgias Integumentary Denies abscess or rash Neurologic Neurologic: Denies headache(s) or weakness Psychiatric Psychiatric: Denies anxiety, depression, suicidal ideation or suicidal thoughts Endocrine Endocrinology: Denies polydipsia, polyphagia or polyuria Allergic/Immunologic Allergic/Immunologic ED: Denies mouth swelling, tongue swelling or urticaria EXAM Physical Exam Const Vital Signs: 09/27/23 05:06 09/27/23 05:09 09/27/23 06:09 Temperature 97.7 F L 97.7 F L 97.6 F L Temperature Source Oral Oral Temporal Pulse Rate 82 82 81 Respiratory Rate 16 16 16 Blood Pressure 157/90 H 157/90 H 129/81 H Blood Pressure Mean 112 112 97 Pulse Ox 98 94 98 Oxygen Delivery Method Room Air Room Air Room Air 09/27/23 07:06 Temperature Temperature Source Pulse Rate 62 Respiratory Rate 16 Blood Pressure 145/73 H Blood Pressure Mean 97 Pulse Ox 96 Oxygen Delivery Method Room Air Positive well nourished, well developed and obese General Appearance ED: well developed Nutritional Appearance: obese HEENT Reports normocephalic, head/scalp atraumatic and moist mucous membranes Eyes PERRL and EOMs intact bilaterally Neck no lymphadenopathy, supple and no JVD Resp normal respiratory effort and clear to auscultation bilaterally Cardio regular rate, regular rhythm and no murmurs GI Auscultation: hypoactive bowel sounds Palpation: soft, tender LLQ, guarding and rebound tenderness present Back/Spine no CVA tenderness and normal ROM Extremity normal to inspection General Extremety ED: Negative for edema General Extremity: Negative for edema Neuro oriented x3 and CN's II-XII intact bilaterally Sensorium / Orientation: alert Motor Exam: strength 5/5 throughout Psych mental status grossly normal Mood & Affect: Negative for depressed or tearful Skin no rashes or lesions noted and no wounds MDM MDM MDM Narrative Medical decision making narrative: Differential diagnosis includes but not limited to sigmoid diverticulitis uncomplicated, perforation, with abscess, failure of outpatient therapy, colitis, UTI, urolithiasis colonic volvulus IV was established patient received pain and nausea medications as well as IV fluids. Glucose returns at 170. Urinalysis is normal. CT then pelvis with IV contrast was obtained. This demonstrates sigmoid diverticulitis without obvious perforation/abscess. Patient received a dose of Zosyn. I spoke with Dr. Gill who performed a colonoscopy on the patient in the past. Plan is admission into the hospital. History & Record Review Discussion w/independent historian: Patient Additional record(s) reviewed:: Prior inpatient record, Prior ED visit and Prior labs Lab Data Attestation: I reviewed the patient's lab results. Labs: Laboratory Results - last 24 hr 09/27/23 09/27/23 05:42 06:35 Sodium 137 Potassium 3.6 Chloride 105 Carbon Dioxide 27.0 Anion Gap 5 BUN 8 Creatinine 0.68 L Estim Creat Clear Calc 182.19 Est GFR (MDRD) Af Amer 163 Est GFR (MDRD) Non-Af 135 BUN/Creatinine Ratio 11.7 Glucose 170 H Calcium 8.8 Total Bilirubin 0.70 AST 23 ALT 46 Alkaline Phosphatase 46 Total Protein 7.1 Albumin 3.6 Globulin 3.5 Albumin/Globulin Ratio 1.0 Urine Color Yellow Urine Clarity Clear Urine pH 6.5 Ur Specific [place] 1.005 Urine Protein Negative Urine Glucose (UA) Normal Urine Ketones 50 H Urine Occult Blood Negative Urine Nitrite Negative Urine Bilirubin Negative Urine Urobilinogen Normal Ur Leukocyte Esterase 25 H Urine RBC 0 SEEN Urine WBC 0 SEEN Ur Squamous Epith Cells 0 SEEN Urine Bacteria 0 SEEN Urine Mucus 0 SEEN Radiography Diagnostic Testing: Clinical Impression(s) from Imaging Studies Abdomen/Pelvis CT 09/27/23 05:21 IMPRESSION: 1. Mild increased pericolonic inflammation involving proximal sigmoid consistent with worsening diverticulitis. No discrete drainable abscess or free intraperitoneal air. Trace 2. Intrapelvic right lower quadrant fluid. Electronically Signed: Pati Jackson MD at 7:17 EDT , Management Discussion w/another healthcare provider: [facility] (Surgery (Dr. Gill)) Discharge Plan Triage Chief Complaint: Abd Pain ED Provider: Joce Wan Dx/Rx/DC Orders Prescriptions: No Action Centrum Complete 18-400 mg-mcg Tablet 1 tab PO DAILY metformin 500 mg tablet extended release 24 hr 1 mg PO DAILY Patient Comments: Take 1 tablet by mouth daily with breakfast. naproxen 500 mg tablet 500 mg PO BID PRN PRN (Reason: pain) ciprofloxacin HCl [Cipro] 500 mg tablet 500 mg PO BID Qty: 20 0RF metronidazole 500 mg tablet 500 mg PO Q8H Qty: 30 0RF Primary Care Provider: Nik Metcalf Referrals: Nik Metcalf MD [Primary Care Provider] - Print Language: [place]ian
[2023-09-27 06:05] LABS: AST(SGOT) 23 U/L (15-37); Alanine Aminotransfer ALT/SGPT 46 U/L (16-61); Albumin, Serum 3.6 g/dL (3.2-5.0); Alkaline Phosphatase 46 U/L (45-117); Anion Gap 5 (5-15); BUN 8 mg/dL (7-18); BUN/Creat Ratio 11.7 RATIO (10-20); Calcium,Total 8.8 mg/dL (8.5-10.1); Chloride 105 mmol/L (98-107); Creatinine, Serum 0.68 mg/dL (0.70-1.30); EST Glomerular Filtration Rate 135 mL/min (>60); Est Glom Filt Rate - Afr Amer 163 mL/min (>60); Estimated Creatinine Clearance 182.19 ml/min; Globulin 3.5 g/dL (2.2-4.2); Glucose 170 mg/dL (74-106); Potassium 3.6 mmol/L (3.5-5.1); Protein, Total 7.1 g/dL (6.4-8.2); Sodium Level 137 mmol/L (136-145)
[2023-09-27] MEDS: Piperacil/Tazobactam 4.5 GM in 0.9% Normal Saline (100mL MB+) 100 ML IV (06:16)
[2023-09-27 06:50] LABS: Bacteria 0 SEEN /hpf (None Seen); Mucous, Urine 0 SEEN /hpf (<or=2+); Red Blood Cells-Urine 0 SEEN /hpf (0-5); Squamous Epithelial Cells - UA 0 SEEN /hpf (0-5); White Blood Cells 0 SEEN /hpf (0-5)
[2023-09-27 07:11] LABS: Color, Urine Yellow (Yellow); Glucose, Dipstick Normal (Normal); Ketone-Dipstick 50 mg/dl (Negative); Leukocyte Esterase-Dipstick 25 /ul (Negative); Nitrite-Dipstick Negative (Negative); Occult Blood-Urine Negative /ul (Negative); Protein-Dipstick Negative (Negative); Specific Gravity, Urine 1.005 (1.002-1.030); Urine Bilirubin Dipstick Negative (Negative); Urine Clarity Clear (Clear); Urine Urobilinogen Normal (Normal); Urine pH 6.5 (5.0 - 8.0)
[2023-09-27] MEDS: 0.9% Normal Saline (1000mL) 1,000 ML 150 ML IV (07:30)
--- NOTE | 2023-09-27 08:05 | NURSING ---
MED SURG [facility] SIGMOID DIVERTICULITIS
[2023-09-27 08:14] LABS: Absolute Lymphocyte Count 2.22 X10^3/uL (0.83-4.51); Absolute Neutrophil Count 8.9 X10^3/uL (2.0-7.7); Basophil# 0.04 X10^3/uL; Basophil% 0.3 % (0-1); Eosinophil# 0.29 X10^3/uL; Eosinophils% 2.3 % (0-5); Hematocrit 46.1 % (40-54); Hemoglobin 16.1 g/dL (13.0-16.5); Lymphocyte # 2.22 X10^3/ul (0.83-4.51); Lymphocyte % 17.4 % (19-41); Mean Corp Hgb Conc 34.9 g/dL (32-36); Mean Corpuscular Volume 88.7 fL (80-94); Mean Platelet Vol. 11.6 fl (6.2-12.0); Monocyte# 1.33 X10^3/uL; Monocyte% 10.4 % (0-10); NRBC Flagged by Analyzer 0 % (0-5); Neutrophil # 8.86 X10^3/uL (2.7-7.7); Neutrophil % 69.3 % (47-70); Platelet Count 264 K/mm3 (150-450); RBC Distribution Width CV 12.7 % (11.6-14.6); RBC Distribution Width SD 41.5 fl (35.1-43.9); White Blood Count 12.8 K/mm3 (4.4-11.0)
[2023-09-27] MEDS: 0.9% Normal Saline (1000mL) 1,000 ML 125 ML IV ×2 (10:16→18:29)
[2023-09-27] MEDS: Morphine 2 MG/ML Syringe IV (10:24)
--- NOTE | 2023-09-27 11:40 | CASEMGMT ---
RN CM Face to Face with patient for initial transition planning/care coordination assessment. RN CM introduced self and role at [facility]. Patient lying in bed, alert and oriented. Patient willing to participate in assessment and is able to answer all questions appropriately. Care providers, pharmacy, and demographics verified. PCP: [facility] Specialists: KRISTEN, cheyanne; Karen Romo Spinal specialist Preferred Pharmacy: [facility] Benef[facility]: yes Living Will/HPOA: none LNOK: significant other Living Arrangements: Patient lives with daughters 4 and 10 years old and significant other. Patient lives in [facility] [address] [facility]. Patient is independent and able to ambulate stairs. Transportation: self, girlfriend DME/HHC: Patient states he has cane and crutches at home. No previous HHC or SNF Patient wishes to discharge home, denies need for home health at this time. Patient states he has no further needs or concerns at this time. CM to follow for discharge planning needs that may arise. Disposition Plan: Patient to discharge home with family support and follow-up plans in place. Lolita MIRANDA, RN, CM
--- NOTE | 2023-09-27 14:35 | HP.PCM.SX_ITS ---
HPI - General General Date of Admission: 09/27/23 HPI Narrative KAYLEE OCHOA, is a 42 M who presents with lower abdominal pain. The patient was in the emergency room about a week ago and was found to have diverticulitis and started on antibiotics. He says that he got better over the following 3 days and then started back to regular diet which is when he became more painful and came to the hospital. He says the pain is in his left lower quadrant. He denies nausea or vomiting. He says the pain radiates down to his testicles. He denies blood in the stool. He says that it is painful at bowel movements. [facility] Medical History (Updated 09/27/23 @ 09:35 by Honey Nguyen) Prediabetes Loss of hearing Wears glasses PTSD (post-traumatic stress disorder) Depression Anxiety Marijuana use Arthritis Back pain Blackout Dietary restriction History of pain when walking Former smoker Diverticular disease of intestine with perforation and abscess Home Medications ?Medication ?Instructions ?Recorded ?Last Taken ?Type multivitamin-ferrous 1 tab PO DAILY 11/02/21 Unknown History fumarate-folic acid 18 mg-400 mcg tablet (Centrum Complete) metformin 500 mg tablet,extended 1 mg PO DAILY 12/31/21 Unknown History release 24 hr ciprofloxacin HCl 500 mg tablet 500 mg PO BID #20 tabs 09/18/23 Unknown Rx (Cipro) metronidazole 500 mg tablet 500 mg PO Q8H #30 tabs 09/18/23 Unknown Rx naproxen 500 mg tablet 500 mg PO BID PRN PRN pain 09/27/23 Unknown History Allergy/AdvReac Type Severity Reaction Status Date / Time No Known Allergies Allergy Verified 09/27/23 05:06 Surgical History Hx of arthroscopic knee surgery History of tonsillectomy and adenoidectomy Social History household members: family housing: house Smoking Status: Former smoker ROS Constitutional Constitutional: Denies anorexia, chills, fatigue or fever(s) Eyes Eyes: Denies blurry vision ENT HEENT: Denies abnormal hearing Cardiovascular Cardiovascular: Denies chest pain Respiratory/Chest Respiratory/Chest: Denies cough or dyspnea Gastrointestinal Gastrointestinal: Reports abdominal pain; Denies diarrhea, hematemesis, nausea or vomiting Genitourinary Genitourinary: Denies change in urinary stream Musculoskeletal Musculoskeletal: Denies abnormal gait Integumentary Integumentary: Denies jaundice Neurologic Neurologic: Denies dizziness Psychiatric Psychiatric: Denies anxiety Endocrine Endocrinology: Denies heat intolerance Hematologic/Lymphatic Hematologic/Lymphatic: Denies easy bleeding Vital Signs Vital Signs Vital Signs: 09/27/23 05:06 09/27/23 05:09 09/27/23 06:09 Temperature 97.7 F L 97.7 F L 97.6 F L Temperature Source Oral Oral Temporal Pulse Rate 82 82 81 Pulse Strength Respiratory Rate 16 16 16 Blood Pressure 157/90 H 157/90 H 129/81 H Blood Pressure Mean 112 112 97 Blood Pressure Source Blood Pressure Position Blood Pressure Location Pulse Ox 98 94 98 Oxygen Delivery Method Room Air Room Air Room Air 09/27/23 07:06 09/27/23 08:12 09/27/23 09:23 Temperature 97.5 F L 98.1 F Temperature Source Temporal Pulse Rate 62 81 61 Pulse Strength Respiratory Rate 16 16 18 Blood Pressure 145/73 H 137/65 H 157/89 H Blood Pressure Mean 97 89 111 Blood Pressure Source Manual Blood Pressure Position Semi-Fowlers Blood Pressure Location Right Arm Pulse Ox 96 98 99 Oxygen Delivery Method Room Air Room Air 09/27/23 10:00 Temperature Temperature Source Pulse Rate Pulse Strength Normal (2+) Respiratory Rate Blood Pressure Blood Pressure Mean Blood Pressure Source Blood Pressure Position Blood Pressure Location Pulse Ox Oxygen Delivery Method Weight Weight: 272 lb 3.2 oz Body Mass Index (BMI) 40.1 Physical Exam Const oriented x3 and no apparent distress Resp normal respiratory effort GI soft to palpation Palpation: tender LLQ Extremity normal to inspection Results Lab / Micro Data 09/27/23 05:42 09/27/23 05:42 Labs: Laboratory Results - last 24 hr 09/27/23 05:42: WBC 12.8 H, RBC 5.20, Hgb 16.1, Hct 46.1, MCV 88.7, MCH 31.0, MCHC 34.9, RDW Std Deviation 41.5, RDW Coeff of Tu 12.7, Plt Count 264, MPV 11.6, Immature Gran % (Auto) 0.300, Neut % (Auto) 69.3, Lymph % (Auto) 17.4 L, M maya % (Auto) 10.4 H, Eos % (Auto) 2.3, Baso % (Auto) 0.3, Absolute Neuts (auto) 8.9 H, Absolute Lymphs (auto) 2.22, Nucleated RBC % 0, Sodium 137, Potassium 3.6, Chloride 105, Carbon Dioxide 27.0, Anion Gap 5, BUN 8, Creatinine 0.68 L, Estim Creat Clear Calc 182.19, Est GFR (MDRD) Af Amer 163, Est GFR (MDRD) Non-Af 135, BUN/Creatinine Ratio 11.7, Glucose 170 H, Calcium 8.8, Total Bilirubin 0.70, AST 23, ALT 46, Alkaline Phosphatase 46, Total Protein 7.1, Albumin 3.6, Globulin 3.5, Albumin/Globulin Ratio 1.0 09/27/23 06:35: Urine Color Yellow, Urine Clarity Clear, Urine pH 6.5, Ur Specific Titus 1.005, Urine Protein Negative, Urine Glucose (UA) Normal, Urine Ketones 50 H, Urine Occult Blood Negative, Urine Nitrite Negative, Urine Bilirubin Negative, Urine Urobilinogen Normal, Ur Leukocyte Esterase 25 H, Urine RBC 0 SEEN, Urine WBC 0 SEEN, Ur Squamous Epith Cells 0 SEEN, Urine Bacteria 0 SEEN, Urine Mucus 0 SEEN Imaging Radiology Impression Abdomen/Pelvis CT 09/27/23 05:21 IMPRESSION: 1. Mild increased pericolonic inflammation involving proximal sigmoid consistent with worsening diverticulitis. No discrete drainable abscess or free intraperitoneal air. Trace 2. Intrapelvic right lower quadrant fluid. Electronically Signed: Pati Jackson MD at 7:17 EDT Reading Location ID and State: [facility] / [place] Tel , Service support , Assessment & Plan Assessment/Plan (1) Diverticulitis: PLAN: The patient has diverticulitis which has not responded to oral therapy and bowel rest at home. I will admit him and start him on IV antibiotics and continue bowel rest with IV fluids. Patient is tender in the left lower quadrant. His vitals appear stable and his white count is mildly elevated. I did discuss with him that surgery would be necessary if this does not respond to bowel rest and IV antibiotics. Edmund Gill MD Pager: [facility] [address] [place] [address], [address] [place] [address] Office:
[2023-09-27] MEDS: Piperacil/Tazobactam 3.375 GM in 0.9% Normal Saline (50mL MB+) 50 ML IV ×2 (14:44→22:05)
[2023-09-27] MEDS: 0.9% Normal Saline (250mL Bag) 250 ML 15 ML IV (14:46)
[2023-09-27] MEDS: 0.9% Saline Lock 10 ML Syringe IV (22:06)
[2023-09-28 02:20] VITALS: BP 149/78; PULSE 70; RESP 18; TEMP 36.9; O2SAT 96
[2023-09-28] MEDS: 0.9% Normal Saline (1000mL) 1,000 ML 125 ML IV (02:27)
[2023-09-28] MEDS: Piperacil/Tazobactam 3.375 GM in 0.9% Normal Saline (50mL MB+) 50 ML IV ×3 (05:09→22:31)
[2023-09-28] MEDS: Morphine 4 MG/ML Syringe IV ×4 (05:10→20:15)
[2023-09-28 05:20] LABS: Absolute Lymphocyte Count 2.51 X10^3/uL (0.83-4.51); Absolute Neutrophil Count 7.9 X10^3/uL (2.0-7.7); Basophil# 0.05 X10^3/uL; Basophil% 0.4 % (0-1); Eosinophil# 0.44 X10^3/uL; Eosinophils% 3.6 % (0-5); Hematocrit 44.2 % (40-54); Hemoglobin 14.9 g/dL (13.0-16.5); Lymphocyte # 2.51 X10^3/ul (0.83-4.51); Lymphocyte % 20.7 % (19-41); Mean Corp Hgb Conc 33.7 g/dL (32-36); Mean Corpuscular Hgb 30.3 pg (27.0-32.0); Mean Platelet Vol. 10.7 fl (6.2-12.0); Monocyte# 1.16 X10^3/uL; Monocyte% 9.5 % (0-10); NRBC Flagged by Analyzer 0 % (0-5); Neutrophil # 7.94 X10^3/uL (2.7-7.7); Neutrophil % 65.4 % (47-70); Platelet Count 238 K/mm3 (150-450); RBC Distribution Width CV 12.6 % (11.6-14.6); RBC Distribution Width SD 41.7 fl (35.1-43.9); Red Blood Count 4.91 M/mm3 (4.6-6.2); White Blood Count 12.2 K/mm3 (4.4-11.0)
[2023-09-28 05:54] LABS: Anion Gap 6 (5-15); BUN 6 mg/dL (7-18); BUN/Creat Ratio 9.3 RATIO (10-20); Calcium,Total 8.5 mg/dL (8.5-10.1); Chloride 107 mmol/L (98-107); Creatinine, Serum 0.64 mg/dL (0.70-1.30); EST Glomerular Filtration Rate 145 mL/min (>60); Est Glom Filt Rate - Afr Amer 175 mL/min (>60); Estimated Creatinine Clearance 195.25 ml/min; Glucose 127 mg/dL (74-106); Potassium 3.5 mmol/L (3.5-5.1); Sodium Level 137 mmol/L (136-145)
[2023-09-28 08:02] VITALS: BP 144/85; PULSE 65; RESP 18; TEMP 36.7; O2SAT 97
[2023-09-28] MEDS: 0.9% Saline Lock 10 ML Syringe IV (08:14)
--- NOTE | 2023-09-28 08:27 | PCM.PN.SRG ---
Subjective Subjective Patient reports he is more comfortable than yesterday. Denies nausea or vomiting. Denies fevers or chills. He says he does have some pain when he passes gas. Objective Data Objective Data Vital Signs: Vital Signs Temp Pulse Resp BP Pulse Ox O2 Del Method 98.0 F 65 18 144/85 H 97 Room Air 09/28/23 08:02 09/28/23 08:02 09/28/23 08:02 09/28/23 08:02 09/28/23 08:02 09/28/23 08:02 Oxygen Delivery Method Room Air Weight: 272 lb 3.2 oz Body Mass Index (BMI) 40.1 Intake & Output: Intake and Output for Last 24 Hours 09/26/23 09/27/23 09/28/23 23:59 23:59 23:59 Intake Total 2563.0 / 2863.0 1745.83 / 1745.83 Output Total 250 / 250 Balance 2313.0 / 2613.0 1745.83 / 1745.83 Lab / Micro Data 09/28/23 04:50 09/28/23 04:50 Labs: Laboratory Results - last 24 hr 09/28/23 04:50: WBC 12.2 H, RBC 4.91, Hgb 14.9, Hct 44.2, MCV 90.0, MCH 30.3, MCHC 33.7, RDW Std Deviation 41.7, RDW Coeff of Tu 12.6, Plt Count 238, MPV 10.7, Immature Gran % (Auto) 0.400, Neut % (Auto) 65.4, Lymph % (Auto) 20.7, [place] % (Auto) 9.5, Eos % (Auto) 3.6, Baso % (Auto) 0.4, Absolute Neuts (auto) 7.9 H, Absolute Lymphs (auto) 2.51, Nucleated RBC % 0, Sodium 137, Potassium 3.5, Chloride 107, Carbon Dioxide 24.0, Anion Gap 6, BUN 6 L, Creatinine 0.64 L, Estim Creat Clear Calc 195.25, Est GFR (MDRD) Af Amer 175, Est GFR (MDRD) Non-Af 145, BUN/Creatinine Ratio 9.3 L, Glucose 127 H, Calcium 8.5 Physical Exam Const oriented x3 and no apparent distress Resp normal respiratory effort GI soft to palpation Palpation: tender LLQ Assessment & Plan Assessment/Plan (1) Diverticulitis: PLAN: The patient seems to be doing better than yesterday. His white count is coming down and he is more comfortable. I will allow him to have clear liquids today but wait to start regular diet until his pain is completely resolved. Continue IV fluids and antibiotics. Edmund Gill MD Pager: [facility] [address] [place] [address] [address] [place] [phone] Office:
--- NOTE | 2023-09-28 10:46 | NURSING ---
Walking halls with his family at this time.
[2023-09-28] MEDS: 0.9% Normal Saline (1000mL) 1,000 ML 60 ML IV (12:05)
[2023-09-28] MEDS: Heparin Injection (Vial) 5,000 UNIT/ML VIAL 5000 UNIT SC ×2 (13:59→22:31)
[2023-09-28 14:00] VITALS: BP 139/86; PULSE 82; RESP 17; TEMP 37.1; O2SAT 96
[2023-09-28 20:00] VITALS: BP 146/85; PULSE 70; RESP 18; TEMP 37.3; O2SAT 98
[2023-09-28] MEDS: 0.9% Normal Saline (250mL Bag) 250 ML 15 ML IV (22:32)
[2023-09-29 02:00] VITALS: BP 148/98; PULSE 69; RESP 18; TEMP 37; O2SAT 98
[2023-09-29] MEDS: Morphine 4 MG/ML Syringe IV ×3 (04:20→18:38)
[2023-09-29] MEDS: 0.9% Normal Saline (1000mL) 1,000 ML 60 ML IV ×2 (04:21→21:39)
[2023-09-29] MEDS: Piperacil/Tazobactam 3.375 GM in 0.9% Normal Saline (50mL MB+) 50 ML IV ×3 (05:34→21:40)
[2023-09-29] MEDS: Heparin Injection (Vial) 5,000 UNIT/ML VIAL 5000 UNIT SC (05:34)
[2023-09-29 05:52] LABS: Absolute Neutrophil Count 8.9 X10^3/uL (2.0-7.7); Basophil# 0.07 X10^3/uL; Basophil% 0.5 % (0-1); Eosinophil# 0.39 X10^3/uL; Lymphocyte % 18.3 % (19-41); Mean Corp Hgb Conc 34.1 g/dL (32-36); Mean Corpuscular Hgb 30.2 pg (27.0-32.0); Mean Corpuscular Volume 88.5 fL (80-94); Monocyte# 1.32 X10^3/uL; Monocyte% 10.1 % (0-10); NRBC Flagged by Analyzer 0 % (0-5); Neutrophil # 8.87 X10^3/uL (2.7-7.7); Neutrophil % 67.7 % (47-70); Platelet Count 255 K/mm3 (150-450); RBC Distribution Width CV 12.5 % (11.6-14.6); RBC Distribution Width SD 40.7 fl (35.1-43.9); Red Blood Count 4.97 M/mm3 (4.6-6.2); White Blood Count 13.1 K/mm3 (4.4-11.0)
[2023-09-29 07:28] LABS: Anion Gap 7 (5-15); BUN 5 mg/dL (7-18); BUN/Creat Ratio 7.6 RATIO (10-20); Calcium,Total 8.9 mg/dL (8.5-10.1); Chloride 105 mmol/L (98-107); Creatinine, Serum 0.66 mg/dL (0.70-1.30); EST Glomerular Filtration Rate 141 mL/min (>60); Est Glom Filt Rate - Afr Amer 170 mL/min (>60); Estimated Creatinine Clearance 189.33 ml/min; Glucose 148 mg/dL (74-106); Potassium 3.4 mmol/L (3.5-5.1); Sodium Level 136 mmol/L (136-145)
--- NOTE | 2023-09-29 07:28 | PN.SURG_ITS ---
Subjective Subjective Patient reports he is passing flatus and has some mild pain with that. Denies nausea or vomiting. Complaining of back pain. Objective Data Objective Data Vital Signs: Vital Signs Temp Pulse Resp BP Pulse Ox O2 Del Method 98.6 F 69 18 148/98 H 98 Room Air 09/29/23 02:00 09/29/23 02:00 09/29/23 02:00 09/29/23 02:00 09/29/23 02:00 09/29/23 03:00 Oxygen Delivery Method Room Air Weight: 272 lb 3.2 oz Body Mass Index (BMI) 40.1 Intake & Output: Intake and Output for Last 24 Hours 09/27/23 09/28/23 09/29/23 23:59 23:59 23:59 Intake Total 2563.0 / 2863.0 4345.33 / 4595.33 1239 / 1239 Output Total 250 / 250 Balance 2313.0 / 2613.0 4345.33 / 4595.33 1239 / 1239 Lab / Micro Data 09/29/23 05:16 09/28/23 04:50 Labs: Laboratory Results - last 24 hr 09/29/23 05:16: WBC 13.1 H, RBC 4.97, Hgb 15.0, Hct 44.0, MCV 88.5, MCH 30.2, MCHC 34.1, RDW Std Deviation 40.7, RDW Coeff of Tu 12.5, Plt Count 255, MPV 11.0, Immature Gran % (Auto) 0.400, Neut % (Auto) 67.7, Lymph % (Auto) 18.3 L, M maya % (Auto) 10.1 H, Eos % (Auto) 3.0, Baso % (Auto) 0.5, Absolute Neuts (auto) 8.9 H, Absolute Lymphs (auto) 2.40, Nucleated RBC % 0 Physical Exam Const oriented x3 and no apparent distress Resp normal respiratory effort GI soft to palpation Palpation: tender LLQ Assessment & Plan Assessment/Plan (1) Diverticulitis: PLAN: The patient has been tolerating clear liquid diet. He says that the pain is improved and pretty much gone but when I do palpate he does have some tenderness. His white count also is still elevated. I will advance him to full liquids but I would wait to try regular diet until his white count returns to normal. He is already failed conservative treatment once and I am trying to avoid surgery if possible. If he tolerates full liquids and his white count decreases tomorrow I will advance in regular diet and discharge him home. Edmund Gill MD Pager: [facility] [address] [place] [address], [address] [place] [address] Office:
[2023-09-29 08:00] VITALS: BP 142/82; PULSE 61; RESP 16; TEMP 36.6; O2SAT 98
[2023-09-29 14:00] VITALS: BP 148/81; PULSE 74; RESP 17; TEMP 37.2; O2SAT 96
[2023-09-29] MEDS: 0.9% Saline Lock 10 ML Syringe IV (18:38)
[2023-09-29 19:52] VITALS: BP 149/87; PULSE 69; RESP 18; TEMP 36.9; O2SAT 95
[2023-09-30 01:22] VITALS: BP 153/72; PULSE 67; RESP 16; TEMP 36.2; O2SAT 95
[2023-09-30] MEDS: Morphine 4 MG/ML Syringe IV (01:26)
[2023-09-30 06:03] VITALS: BP 138/85; PULSE 71; RESP 18; TEMP 36.5; O2SAT 96
[2023-09-30] MEDS: Piperacil/Tazobactam 3.375 GM in 0.9% Normal Saline (50mL MB+) 50 ML IV ×3 (06:04→21:21)
[2023-09-30 06:13] LABS: Absolute Lymphocyte Count 2.16 X10^3/uL (0.83-4.51); Absolute Neutrophil Count 8.3 X10^3/uL (2.0-7.7); Basophil# 0.06 X10^3/uL; Basophil% 0.5 % (0-1); Eosinophil# 0.34 X10^3/uL; Eosinophils% 2.8 % (0-5); Hemoglobin 14.3 g/dL (13.0-16.5); Lymphocyte # 2.16 X10^3/ul (0.83-4.51); Lymphocyte % 17.8 % (19-41); Mean Corpuscular Hgb 30.2 pg (27.0-32.0); Mean Corpuscular Volume 88.6 fL (80-94); Mean Platelet Vol. 10.7 fl (6.2-12.0); Monocyte# 1.25 X10^3/uL; Monocyte% 10.3 % (0-10); NRBC Flagged by Analyzer 0 % (0-5); Neutrophil # 8.25 X10^3/uL (2.7-7.7); Neutrophil % 67.9 % (47-70); Platelet Count 220 K/mm3 (150-450); RBC Distribution Width CV 12.5 % (11.6-14.6); RBC Distribution Width SD 40.9 fl (35.1-43.9); Red Blood Count 4.74 M/mm3 (4.6-6.2); White Blood Count 12.1 K/mm3 (4.4-11.0)
[2023-09-30 06:46] LABS: Anion Gap 8 (5-15); BUN 5 mg/dL (7-18); BUN/Creat Ratio 9.4 RATIO (10-20); Calcium,Total 8.7 mg/dL (8.5-10.1); Chloride 105 mmol/L (98-107); Creatinine, Serum 0.53 mg/dL (0.70-1.30); EST Glomerular Filtration Rate 180 mL/min (>60); Est Glom Filt Rate - Afr Amer 218 mL/min (>60); Estimated Creatinine Clearance 235.77 ml/min; Glucose 130 mg/dL (74-106); Potassium 3.3 mmol/L (3.5-5.1); Sodium Level 137 mmol/L (136-145)
--- NOTE | 2023-09-30 07:27 | PCM.PN.SRG ---
Subjective Subjective Patient seen and examined during AM rounds. He is found preparing to walk in the hallways which he states that he is doing hourly to try to improve as well as salguero off any blood clots. He confirms that he is tolerating his liquid diet without any increased pain. He shares that he is still having difficulty passing gas and can only do so when he sits on the toilet. He reports that he is having some small loose bowel movements. He denies any difficulty with urination. Objective Data Objective Data Vital Signs: Vital Signs Temp Pulse Resp BP Pulse Ox O2 Del Method 97.7 F L 71 18 138/85 H 96 Room Air 09/30/23 06:03 09/30/23 06:03 09/30/23 06:03 09/30/23 06:03 09/30/23 06:03 09/30/23 06:03 Oxygen Delivery Method Room Air Weight: 272 lb 3.2 oz Body Mass Index (BMI) 40.1 Intake & Output: Intake and Output for Last 24 Hours 09/28/23 09/29/23 09/30/23 23:59 23:59 23:59 Intake Total 4345.33 / 4595.33 3409 / 3409 222.5 / 222.5 Output Total 1100 / 1100 Balance 4345.33 / 4595.33 2309 / 2309 222.5 / 222.5 Lab / Micro Data 09/30/23 05:46 09/30/23 05:46 Labs: Laboratory Results - last 24 hr 09/29/23 05:16: Sodium 136, Potassium 3.4 L, Chloride 105, Carbon Dioxide 24.0, Anion Gap 7, BUN 5 L, Creatinine 0.66 L, Estim Creat Clear Calc 189.33, Est GFR (MDRD) Af Amer 170, Est GFR (MDRD) Non-Af 141, BUN/Creatinine Ratio 7.6 L, Glucose 148 H, Calcium 8.9 09/30/23 05:46: WBC 12.1 H, RBC 4.74, Hgb 14.3, Hct 42.0, MCV 88.6, MCH 30.2, MCHC 34.0, RDW Std Deviation 40.9, RDW Coeff of Tu 12.5, Plt Count 220, MPV 10.7, Immature Gran % (Auto) 0.700, Neut % (Auto) 67.9, Lymph % (Auto) 17.8 L, [place] % (Auto) 10.3 H, Eos % (Auto) 2.8, Baso % (Auto) 0.5, Absolute Neuts (auto) 8.3 H, Absolute Lymphs (auto) 2.16, Nucleated RBC % 0, Sodium 137, Potassium 3.3 L, Chloride 105, Carbon Dioxide 24.0, Anion Gap 8, BUN 5 L, Creatinine 0.53 L, Estim Creat Clear Calc 235.77, Est GFR (MDRD) Af Amer 218, Est GFR (MDRD) Non-Af 180, BUN/Creatinine Ratio 9.4 L, Glucose 130 H, Calcium 8.7 Physical Exam Const oriented x3 and no apparent distress Resp normal respiratory effort GI GI Narrative: Obese, nondistended, soft, tender to palpation in the left lower quadrant and suprapubic positions rating this a 3-4 out of 10 Assessment & Plan Assessment/Plan (1) Diverticulitis: PLAN: The patient continues to tolerate clear liquid diet. Patient with persistent tenderness of the left lower quadrant rated 3-4 out of 10. His white count remains mildly elevated but somewhat decreased from yesterday. Advance to full liquids today since he was just on clear liquids. Given persistent tenderness will continue IV antibiotics. Lastly, patient requires potassium replacement today?will do so via oral route given tenuous IV access. Dalton Villatoro MD General Surgery Endocrine Surgery Pager: [facility] [address] [place] [address], [address] [place] [address] Office: [phone] Charges/Coding Visit Charges Inpatient E&M: 90993 Init Hosp L2
[2023-09-30 08:14] VITALS: BP 150/85; PULSE 74; RESP 18; TEMP 36.8; O2SAT 97
[2023-09-30] MEDS: Morphine 2 MG/ML Syringe IV (08:29)
[2023-09-30] MEDS: Potassium Chloride Oral Tablet 20 MEQ 40 MEQ PO (08:30)
[2023-09-30 11:54] VITALS: BP 164/89; PULSE 78; RESP 16; TEMP 37.2; O2SAT 96
[2023-09-30] MEDS: Acetaminophen 325 MG Tablet 650 MG PO ×2 (12:08→18:43)
[2023-09-30] MEDS: oxyCODONE 5 MG Tablet PO ×2 (12:09→18:44)
[2023-09-30] MEDS: 0.9% Normal Saline (1000mL) 1,000 ML 60 ML IV (13:55)
[2023-09-30 17:05] VITALS: BP 144/75; PULSE 66; RESP 16; TEMP 36.8; O2SAT 98
[2023-09-30 19:41] VITALS: BP 149/84; PULSE 73; RESP 16; TEMP 36.9; O2SAT 98
[2023-09-30] MEDS: 0.9% Normal Saline (250mL Bag) 250 ML 15 ML IV (20:51)
[2023-10-01 02:15] VITALS: BP 151/89; PULSE 63; RESP 16; TEMP 36.8; O2SAT 97
[2023-10-01] MEDS: Acetaminophen 325 MG Tablet 650 MG PO (02:21)
[2023-10-01] MEDS: oxyCODONE 5 MG Tablet PO (02:21)
[2023-10-01] MEDS: Piperacil/Tazobactam 3.375 GM in 0.9% Normal Saline (50mL MB+) 50 ML IV (05:21)
[2023-10-01 06:45] LABS: Absolute Lymphocyte Count 2.22 X10^3/uL (0.83-4.51); Absolute Neutrophil Count 9.1 X10^3/uL (2.0-7.7); Basophil# 0.05 X10^3/uL; Basophil% 0.4 % (0-1); Eosinophil# 0.36 X10^3/uL; Eosinophils% 2.7 % (0-5); Hematocrit 43.5 % (40-54); Lymphocyte # 2.22 X10^3/ul (0.83-4.51); Lymphocyte % 16.9 % (19-41); Mean Corp Hgb Conc 34.5 g/dL (32-36); Mean Corpuscular Hgb 30.5 pg (27.0-32.0); Mean Corpuscular Volume 88.6 fL (80-94); Mean Platelet Vol. 10.5 fl (6.2-12.0); Monocyte% 9.9 % (0-10); NRBC Flagged by Analyzer 0 % (0-5); Neutrophil # 9.14 X10^3/uL (2.7-7.7); Neutrophil % 69.7 % (47-70); Platelet Count 241 K/mm3 (150-450); RBC Distribution Width CV 12.5 % (11.6-14.6); Red Blood Count 4.91 M/mm3 (4.6-6.2); White Blood Count 13.1 K/mm3 (4.4-11.0)
--- NOTE | 2023-10-01 07:16 | PN.SURG_ITS ---
Subjective Subjective The patient reports he is passing gas and feeling more comfortable. He is not having pain. He denies nausea or vomiting. Objective Data Objective Data Vital Signs: Vital Signs Temp Pulse Resp BP Pulse Ox O2 Del Method 98.2 F 63 16 151/89 H 97 Room Air 10/01/23 02:15 10/01/23 02:15 10/01/23 02:15 10/01/23 02:15 10/01/23 02:15 10/01/23 02:15 Oxygen Delivery Method Room Air Weight: 272 lb 3.2 oz Body Mass Index (BMI) 40.1 Intake & Output: Intake and Output for Last 24 Hours 09/29/23 09/30/23 10/01/23 23:59 23:59 23:59 Intake Total 3409 / 3409 2360.5 / 2360.5 50 / 50 Output Total 1100 / 1100 Balance 2309 / 2309 2360.5 / 2360.5 50 / 50 Lab / Micro Data 10/01/23 06:21 09/30/23 05:46 Labs: Laboratory Results - last 24 hr 10/01/23 06:21: WBC 13.1 H, RBC 4.91, Hgb 15.0, Hct 43.5, MCV 88.6, MCH 30.5, MCHC 34.5, RDW Std Deviation 41.0, RDW Coeff of Tu 12.5, Plt Count 241, MPV 10.5, Immature Gran % (Auto) 0.400, Neut % (Auto) 69.7, Lymph % (Auto) 16.9 L, [place] % (Auto) 9.9, Eos % (Auto) 2.7, Baso % (Auto) 0.4, Absolute Neuts (auto) 9.1 H, Absolute Lymphs (auto) 2.22, Nucleated RBC % 0 Physical Exam Const oriented x3 and no apparent distress Resp normal respiratory effort GI soft to palpation and non-tender Inspection: Negative for abdominal distention Assessment & Plan Assessment/Plan (1) Diverticulitis: PLAN: His white count is persistently mildly elevated. He is not experiencing any pain and reports he is much better than when he arrived. He is tolerating a full liquid diet with no exacerbation of the pain but his white count persistently is 12-13 every day. The patient has a lot going on right now and would like to acute surgery if possible and have elective surgery. I discussed possibly discharging home on a full liquid diet and oral antibiotics and continuing full liquid diet for a week before starting regular diet and monitoring him closely as an outpatient and if anything worsens bring him back into the hospital. Edmund Gill MD Pager: [facility] [address] [place] [address], [address] [place] [address] Office:
--- NOTE | 2023-10-01 07:30 | DS.PCM_ITS ---
Providers Date of Admission: 09/27/23 Primary Care Physician: Dr. Nik Metcalf MD Reason For Visit: SIGMOID DIVERTICULITIS Diagnosis Discharge Diagnosis (1) Diverticulitis: Status: Acute Code(s): K57.92 - Diverticulitis of intestine, part unspecified, without perforation or abscess without bleeding Plan: His white count is persistently mildly elevated. He is not experiencing any pain and reports he is much better than when he arrived. He is tolerating a full liquid diet with no exacerbation of the pain but his white count persistently is 12-13 every day. The patient has a lot going on right now and would like to acute surgery if possible and have elective surgery. I discussed possibly discharging home on a full liquid diet and oral antibiotics and continuing full liquid diet for a week before starting regular diet and monitoring him closely as an outpatient and if anything worsens bring him back into the hospital. Edmund Gill MD Pager: [facility] [address] [place] [address], [address] [place] [address] Office: Medications at Discharge Home Medications multivitamin-ferrous fumarate-folic acid 18 mg-400 mcg tablet (Centrum Complete) 1 tab PO DAILY 11/02/21 metformin 500 mg tablet,extended release 24 hr 1 mg PO DAILY 12/31/21 naproxen 500 mg tablet 500 mg PO BID PRN PRN pain 09/27/23 acetaminophen 325 mg tablet 650 mg (2 x 325 mg) PO Q6H PRN PRN Pain 1-10 Or Fever #0 tabs 10/01/23 amoxicillin 500 mg-potassium clavulanate 125 mg tablet (Augmentin) 1 tab PO BID #20 tabs 10/01/23 Hospital Course Summary of Care Provided Hospital Course: Patient was admitted with diverticulitis of the sigmoid colon. He was kept on n.p.o. and IV fluids and antibiotics until his pain resolved. He was started on clear liquid and advance to full liquid and he tolerated this well with minimal pain. Today he is having no pain but his white count is still mildly elevated. We discussed discharging home on oral antibiotics and staying on a full liquid diet for a week and then following up with me to discuss and schedule elective sigmoid colectomy Weight / BMI Weight Weight: 272 lb 3.2 oz Body Mass Index (BMI) 40.1 ABG / Lab / Microbiology Data 10/01/23 06:21 09/30/23 05:46 Laboratory: Laboratory Results - last 24 hr 10/01/23 06:21: WBC 13.1 H, RBC 4.91, Hgb 15.0, Hct 43.5, MCV 88.6, MCH 30.5, MCHC 34.5, RDW Std Deviation 41.0, RDW Coeff of Tu 12.5, Plt Count 241, MPV 10.5, Immature Gran % (Auto) 0.400, Neut % (Auto) 69.7, Lymph % (Auto) 16.9 L, [place] % (Auto) 9.9, Eos % (Auto) 2.7, Baso % (Auto) 0.4, Absolute Neuts (auto) 9.1 H, Absolute Lymphs (auto) 2.22, Nucleated RBC % 0 D/C Instructions Discharge Diet: - (Full liquid diet) Discharge Activity: Return to Normal Activity Call your doctor if your incision/area has: Increased Pain/ Swelling Call your doctor if you observe: Fever of 101 or Higher, Inability to have a bowel movement and Uncontrolled pain Please Follow Up With: Edmund Gill MD When: Please call to schedule 1 week follow up appointment. [phone] Meaningful Use Info Meaningful Use Meaningful Use Diagnoses (Choose all that apply): None applicable Ischemic Stroke Statin Dosing Therapy Reference: STATIN DOSE THERAPY REFERENCE: * Patients > 75 years receive moderate or high dose statin therapy. * Patients 75 years or YOUNGER should receive HIGH intensity statin dose unless contraindicated. You will be required to document reason for non-treatment if statin daily dose does not meet guidelines. HIGH DOSE STATIN THERAPY DAILY Atorvastatin > than or = to 40 mg Rosuvastatin > than or = to 20 mg Amlodipine + Atorvastatin > than or = to 2.5/40 mg Ezetimibe + Simvastatin 10/80 mg Simvastatin 80mg Discharge Plan Admission Admit Date/Time: 09/27/23 09:11 Attending Provider: Edmund Gill Primary Care Provider: Nik Metcalf Discharge Orders/Prescriptions Prescriptions: New acetaminophen 325 mg Tablet 650 mg PO Q6H PRN PRN (Reason: Pain 1-10 Or Fever) Qty: 0 0RF amoxicillin-pot clavulanate [Augmentin] 500-125 mg tablet 1 tab PO BID Qty: 20 0RF Continued Centrum Complete 18-400 mg-mcg Tablet 1 tab PO DAILY metformin 500 mg tablet extended release 24 hr 1 mg PO DAILY Patient Comments: Take 1 tablet by mouth daily with breakfast. naproxen 500 mg tablet 500 mg PO BID PRN PRN (Reason: pain) Discontinued ciprofloxacin HCl [Cipro] 500 mg tablet 500 mg PO BID Qty: 20 0RF metronidazole 500 mg tablet 500 mg PO Q8H Qty: 30 0RF Referrals / Follow Up: Nik Metcalf MD [Primary Care Provider] - Disposition Disposition (needs filled in before D/C Order can be placed): Home, Self Care
[2023-10-01 07:37] VITALS: BP 143/83; PULSE 60; RESP 18; TEMP 36.6; O2SAT 97
--- NOTE | 2023-10-01 09:34 | PHA.DC_ITS ---
Pharmacy [facility] has performed discharge medication reconciliation and counseling for this patient. 1. AUGMENTIN 500MG PO BID X 10 DAYS The patient's discharge medication list was reviewed for discrepancies and discrepancies were resolved. The patient was counseled on the following discharge medications and changes in medications for homegoing were reviewed. The Reason for Use, instructions for use, and potential side effects were reviewed for all new medications. The patient's questions regarding all of their medications were answered. The patient was able to verbally demonstrate an understanding of their discharge medications. Patient counseled by director of pharmacyWendy. Medications at Discharge Home Medications multivitamin-ferrous fumarate-folic acid 18 mg-400 mcg tablet (Centrum Complete) 1 tab PO DAILY 11/02/21 metformin 500 mg tablet,extended release 24 hr 1 mg PO DAILY 12/31/21 naproxen 500 mg tablet 500 mg PO BID PRN PRN pain 09/27/23 acetaminophen 325 mg tablet 650 mg (2 x 325 mg) PO Q6H PRN PRN Pain 1-10 Or Fever #0 tabs 10/01/23 amoxicillin 500 mg-potassium clavulanate 125 mg tablet (Augmentin) 1 tab PO BID #20 tabs 10/01/23
== END 2023-10-01 10:38 | disposition home or self-care (01) | DRG 392 ==
LOC: ED 05:33 → MS3 09:33
PROVIDERS: Surgery; Admitting Provider Surgery; Emergency Provider Emergency Medicine; PCP Family Medicine; Visit Provider Surgery
DX: K57.32 Diverticulitis of large intestine without perforation or abscess without bleeding (principal); Z68.41 Body mass index [BMI] 40.0-44.9, adult; E66.9 Obesity, unspecified; Z79.84 Long term (current) use of oral hypoglycemic drugs; Z87.891 Personal history of nicotine dependence
CPT/HCPCS: 36415; 74177; 80048; 80053; 81001; 85025; 99284; J7030; J7050; Q9967; A4216; J2405

== ENCOUNTER 2024-09-23 07:41 | Emergency (ER) | payer MEDICARE, SELFPAY ==
[2024-09-23 07:41] VITALS: BP 154/93; PULSE 97; RESP 19; TEMP 37.1; O2SAT 100; BMI 39.6
--- NOTE | 2024-09-23 08:42 | EDS_ITS ---
HPI History of Present Illness Chief Complaint: Abd Pain Narrative Narrative: Chief complaint and HPI: Nausea, vomiting, diarrhea. 43-year-old male with past medical history of type II DM presents for evaluation of nausea, vomiting, diarrhea. Onset this morning at 1 AM after eating a [employer] sub around 2300. Vomiting and diarrhea are nonbloody. Patient endorses diffuse abdominal pain that started after the vomiting and diarrhea. He denies any fever, chills, shortness of breath, chest pain, dysuria. Has not taken anything for his symptoms. Review of systems: See HPI Medications: As listed on the chart Allergies: As listed on the chart PFSH: Per chart Vital signs: As listed on the chart. Reviewed. Physical exam: Gen: A&O x3, NAD Head: Normocephalic, atraumatic Eyes: No sclera icterus, conjunctiva clear ENT: Moist mucous membranes Neck: Trachea midline, No JVD CV: RRR, no murmurs, no peripheral edema Resp: Lungs CTA BL, no w/r/c GI: Abd soft, non-distended, non-tender, no r/r/g : No CVA tenderness Musc: Full ROM, no deformity Skin: Warm, dry Neuro: Alert, oriented, grossly intact, sensation intact Psych: Cooperative [facility] Medical History Prediabetes Loss of hearing Wears glasses PTSD (post-traumatic stress disorder) Depression Anxiety Marijuana use Arthritis Back pain Blackout Dietary restriction History of pain when walking Former smoker Diverticular disease of intestine with perforation and abscess Home Medications ?Medication ?Instructions ?Recorded ?Last Taken ?Type multivitamin-ferrous 1 tab PO DAILY 11/02/21 Unkn own History fumarate-folic acid 18 mg-400 mcg tablet (Centrum Complete) naproxen 500 mg tablet 500 mg PO BID PRN PRN pain 0 09/27/23 Unknown History acetaminophen 325 mg tablet 650 mg (2 x 325 mg) PO Q6H PRN PRN 10/01/23 Unknown Rx Pain 1-10 Or Fever #0 tabs Allergy/AdvReac Type Severity Reaction Status Date / Time No Known Allergies Allergy Verified 09/23/24 07:41 Surgical History Hx of arthroscopic knee surgery History of tonsillectomy and adenoidectomy Social History household members: family housing: house Smoking Status: Current every day smoker tobacco type: cigarettes substance use type: marijuana EXAM Physical Exam Const Vital Signs: 09/23/24 07:41 09/23/24 09:40 09/23/24 11:00 Temperature 98.8 F Temperature Source Temporal Pulse Rate 97 90 66 Respiratory Rate 19 H 18 16 Blood Pressure 154/93 H 150/90 H 165/79 H Blood Pressure Mean 113 110 107 Pulse Ox 100 98 98 Oxygen Delivery Method Room Air Room Air MDM MDM MDM Narrative Medical decision making narrative: 43-year-old male with past medical history of type II DM presents for evaluation of nausea, vomiting, diarrhea. Differential diagnosis includes but is not limited to food poisoning, viral illness, electrolyte abnormality, UTI. NS bolus, Toradol, Zofran ordered for symptoms with abdominal pain laboratory workup. I do not think any CT abdomen pelvis is needed at this time. CBC without leukocytosis. Patient has a mild hemoconcentration at 16.8. This is likely secondary to dehydration from his vomiting and diarrhea. CMP shows an anion gap of 16 with a glucose of 212. UA positive for glucose and ketones. I do not believe the patient is in DKA instead I feel like this is secondary to dehydration. Will continue fluids and then recheck BMP and VBG. Mild ALT elevation at 49. Lipase unremarkable. UA negative for UTI. On reexamination, patient states his symptoms have improved. States he feels much better. Will await repeat labs after fluids. VBG without acidosis. Repeat BMP without anion gap. Patient's gap was likely secondary to dehydration. Patient tolerated p.o. intake. Patient stable to discharge home. Zofran as needed for nausea. Follow-up with PCP. Return precautions explained. He confirmed understand the plan. Impression: 1. Nausea and vomiting 2. Diarrhea 3. Dehydration Lab Data Labs: Laboratory Results - last 24 hr 09/23/24 09/23/24 09/23/24 07:55 09:20 10:45 WBC 9.8 RBC 5.37 Hgb 16.8 H Hct 47.1 MCV 87.7 MCH 31.3 MCHC 35.7 RDW Std Deviation 41.0 RDW Coeff of Tu 12.8 Plt Count 231 MPV 11.3 Immature Gran % (Auto) 0.600 Neut % (Auto) 75.8 H Lymph % (Auto) 18.9 L [place] % (Auto) 3.5 Eos % (Auto) 0.6 Baso % (Auto) 0.6 Absolute Neuts (auto) 7.4 Absolute Lymphs (auto) 1.85 Nucleated RBC % 0 Sodium 140 141 Potassium 3.6 3.7 Chloride 100 104 Carbon Dioxide 24.4 26.2 Anion Gap 16 H 11 BUN 15 15 Creatinine 0.72 0.62 L Estim Creat Clear Calc 170.49 197.99 Est GFR (MDRD) Non-Af 116 121 BUN/Creatinine Ratio 20.3 H 23.9 H Glucose 212 H 197 H Calcium 9.5 9.0 Total Bilirubin 0.43 AST 31 ALT 49 H Alkaline Phosphatase 56 Total Protein 7.5 Albumin 4.6 Globulin 2.9 Albumin/Globulin Ratio 1.6 Lipase 15 Urine Color Yellow Urine Clarity Cloudy Urine pH 8.0 Ur Specific [place] 1.010 Urine Protein 15 H Urine Glucose (UA) 250 H Urine Ketones 150 A* Urine Occult Blood Negative Urine Nitrite Negative Urine Bilirubin Negative Urine Urobilinogen Normal Ur Leukocyte Esterase Negative Urine RBC 0 SEEN Urine WBC 0 SEEN Ur Squamous Epith Cells 0 SEEN Amorphous Sediment 3+ Urine Bacteria 0 SEEN Urine Mucus 0 SEEN ABG Data ABG results: ABG 09/23/24 10:49 Specimen Type SEBASTIAN Sample Site Not entered VBG pH 7.45 H VBG pO2 40 VBG HCO3 31 H VBG Total CO2 33 VBG O2 Sat (Calc) 76 H VBG Base Excess 7 H POC Mix VBG pCO2 Pt Tmp 44.9 O2 Delivery Device Not entered Discharge Plan Triage Chief Complaint: Abd Pain ED Provider: Ananda Green Dx/Rx/DC Orders Prescriptions: No Action Centrum Complete 18-400 mg-mcg Tablet 1 tab PO DAILY naproxen 500 mg tablet 500 mg PO BID PRN PRN (Reason: pain) acetaminophen 325 mg Tablet 650 mg PO Q6H PRN PRN (Reason: Pain 1-10 Or Fever) Qty: 0 0RF Primary Care Provider: Nik Metcalf Referrals: Nik Metcalf MD [Primary Care Provider] - Print Language: Israeli
[2024-09-23] MEDS: Ketorolac 30 MG/ML Syringe IV (08:53)
[2024-09-23] MEDS: Ondansetron 4 MG/2 ML Vial IV (08:53)
[2024-09-23 08:54] LABS: Absolute Lymphocyte Count 1.85 X10^3/uL (0.83-4.51); Absolute Neutrophil Count 7.4 X10^3/uL (2.0-7.7); Basophil# 0.06 X10^3/uL; Basophil% 0.6 % (0-1); Eosinophil# 0.06 X10^3/uL; Eosinophils% 0.6 % (0-5); Hematocrit 47.1 % (40-54); Hemoglobin 16.8 g/dL (13.0-16.5); Lymphocyte # 1.85 X10^3/ul (0.83-4.51); Lymphocyte % 18.9 % (19-41); Mean Corp Hgb Conc 35.7 g/dL (32-36); Mean Corpuscular Hgb 31.3 pg (27.0-32.0); Mean Corpuscular Volume 87.7 fL (80-94); Mean Platelet Vol. 11.3 fl (6.2-12.0); Monocyte# 0.34 X10^3/uL; Monocyte% 3.5 % (0-10); NRBC Flagged by Analyzer 0 % (0-5); Neutrophil # 7.43 X10^3/uL (2.7-7.7); Neutrophil % 75.8 % (47-70); Platelet Count 231 K/mm3 (150-450); RBC Distribution Width CV 12.8 % (11.6-14.6); Red Blood Count 5.37 M/mm3 (4.6-6.2); White Blood Count 9.8 K/mm3 (4.4-11.0)
[2024-09-23] MEDS: 0.9% Normal Saline (1000mL) 1,000 ML 999 ML IV (08:54)
[2024-09-23 09:26] LABS: Lipase 15 U/L (13-75)
[2024-09-23 09:27] LABS: Bacteria 0 SEEN /hpf (None Seen); Mucous, Urine 0 SEEN /hpf (<or=2+); Red Blood Cells-Urine 0 SEEN /hpf (0-5); Squamous Epithelial Cells - UA 0 SEEN /hpf (0-5); White Blood Cells 0 SEEN /hpf (0-5)
[2024-09-23 09:33] LABS: Color, Urine Yellow (Yellow); Glucose, Dipstick 250 mg/dl (Normal); Leukocyte Esterase-Dipstick Negative /ul (Negative); Nitrite-Dipstick Negative (Negative); Occult Blood-Urine Negative /ul (Negative); Protein-Dipstick 15 mg/dl (Negative); Urine Bilirubin Dipstick Negative (Negative); Urine Clarity Cloudy (Clear); Urine Urobilinogen Normal (Normal)
[2024-09-23 09:36] LABS: ALB/GLOB Ratio 1.6 RATIO (0.9-2.4); AST(SGOT) 31 U/L (<=37); Alanine Aminotransfer ALT/SGPT 49 U/L (<=46); Albumin, Serum 4.6 g/dL (3.5-5.0); Alkaline Phosphatase 56 U/L (40-129); Anion Gap 16 (5-15); BUN 15 mg/dL (4-19); BUN/Creat Ratio 20.3 RATIO (10-20); Calcium,Total 9.5 mg/dL (7.6-11.0); Carbon Dioxide 24.4 mmol/L (21.0-32.0); Chloride 100 mmol/L (98-108); Creatinine, Serum 0.72 mg/dL (0.70-1.20); EST Glomerular Filtration Rate 116 (>60); Estimated Creatinine Clearance 170.49 ml/min (50-250); Globulin 2.9 g/dL (2.2-4.2); Glucose 212 mg/dL (70-99); Potassium 3.6 mmol/L (3.3-5.1); Protein, Total 7.5 g/dL (5.9-8.4); Sodium Level 140 mmol/L (133-145); Total Bilirubin 0.43 mg/dL (0.00-1.30)
[2024-09-23 09:37] LABS: Ketone-Dipstick 150 mg/dl (Negative)
[2024-09-23 09:40] VITALS: BP 150/90; PULSE 90; RESP 18; O2SAT 98
[2024-09-23 09:40] LABS: Amorphous Sediment 3+
[2024-09-23 10:53] LABS: Blood Gas Specimen Type VEN; O2 Delivery Device Not entered; SITE Not entered; VBG BASE EXCESS 7 mmol/L (-1.0-3.5); VBG Bicarbonate 31 mmol/L (22-26); VBG PO2 40 mmHg (25-40); VBG SO2 76 % (50-70); VBG TCO2 33 mmol/L (23-33); VBG pCO2 44.9 mmHg (41-51); VBG pH 7.45 (7.32-7.42)
[2024-09-23 11:00] VITALS: BP 165/79; PULSE 66; RESP 16; O2SAT 98
[2024-09-23 11:16] LABS: Anion Gap 11 (5-15); BUN 15 mg/dL (4-19); BUN/Creat Ratio 23.9 RATIO (10-20); Carbon Dioxide 26.2 mmol/L (21.0-32.0); Chloride 104 mmol/L (98-108); Creatinine, Serum 0.62 mg/dL (0.70-1.20); EST Glomerular Filtration Rate 121 (>60); Estimated Creatinine Clearance 197.99 ml/min (50-250); Glucose 197 mg/dL (70-99); Potassium 3.7 mmol/L (3.3-5.1); Sodium Level 141 mmol/L (133-145)
[2024-09-23 12:10] VITALS: BP 168/70; PULSE 89; RESP 16; TEMP 36.6; O2SAT 98
== END 2024-09-23 12:20 | disposition home or self-care (01) ==
PROVIDERS: Emergency Provider Surgery; PCP Family Medicine; Visit Provider Surgery
DX: R11.2 Nausea with vomiting, unspecified (principal); E11.9 Type 2 diabetes mellitus without complications; R19.7 Diarrhea, unspecified; E86.0 Dehydration; F17.210 Nicotine dependence, cigarettes, uncomplicated; F12.90 Cannabis use, unspecified, uncomplicated
CPT/HCPCS: 80048; 80053; 81001; 82803; 83690; 85025; 96374; 96375; 99283; A4216; J2405